=== PATIENT | female | born 1930 | race Caucasian/White ===

== ENCOUNTER 2016-11-02 08:13 | Inpatient (IN) | payer MEDICARE, OTHER ==
[2016-11-02] VITALS (7 sets, daily range): BP systolic 114–153; BP diastolic 46–73; PULSE 63–79; RESP 16–20; O2SAT 88–95
[~2016-11-02] VITALS: Ht 162.6 cm; Wt 65.5 kg
--- NOTE | 2016-11-02 08:35 | ED.REPORT ---
HPI-Abd Pain F 40 and Over Date of Service Nov 02, 2016 ED Provider: Philip Ryder MD The pt is an 85 y/o female w/ a hx of anemia, HTN, and colon cancer presenting to the ED due to severe lower abdominal pain. The pain began after dinner w/ severe gas at 2000 last night with abdominal cramping following an hour after that. Around 0000 the pt started noticing rectal bleeding w/o bowel movements as well. The pt has had several episodes of bloody diarrhea since then as well as L sided abdominal pain, nausea, and polydipsia. The pts family had the same dinner last night and are not experiencing any of her symptoms. The pt also has chronic peripheral edema. Denies vomiting and is unsure of a fever. The pts last colonoscopy was two years ago and was excellent. Nursing Notes Stated Complaint: ABDOMINAL PAIN Chief Complaint: Female Abdominal Pain Nursing Notes Reviewed: Yes Allergies: Coded Allergies: diltiazem (Verified Allergy, Intermediate, 11/02/16) latex (Verified Allergy, Unknown, rash, 11/02/16) neomycin (Verified Allergy, Unknown, rash, 11/02/16) Uncoded Allergies: CHEMO (Allergy, Unknown, 11/02/16) Scheduled Amlodipine (Amlodipine) 10 Mg Tablet 10 MG PO DAILY Aspirin (Aspirin) 81 Mg Tablet 81 MG PO DAILY Atorvastatin Calcium (Atorvastatin Calcium) 40 Mg Tablet 40 MG PO DAILY Carvedilol (Carvedilol) 6.25 Mg Tablet 6.25 MG PO BID Cholecalciferol (Vitamin D3) (Vitamin D) 1,000 Unit Tablet 2,000 UNIT PO DAILY Scheduled PRN Sennosides (Senna Laxative) 25 Mg Tablet 25 MG PO DAILY PRN PRN For Constipation Miscellaneous Medications Fexofenadine HCl (Aller-Ease) 30 Mg/5 Ml Oral.susp 30 MG PO Multivits-Min/FA/Lycopene/Lut (Centrum Silver Tablet) 1 Each Tablet 1 EACH PO [place]-3 Fatty Acids (Fish Oil) 500 Mg Capsule. 500 MG PO General Time Seen by MD: 08:35 Chief Complaint Abdominal pain Hx Obtained From: Patient Arrived By: Walk-in Sudden in Onset?: Yes Onset Occurred: 9 - 12 hours ago Symptom Duration: Since onset Recent Healthcare: No recent doctor visit, No recent hospitalization Past Medical History Past Medical History Colon cancer Anemia Last colonoscopy was 2015 and was "excellent" Reports: Hypertension Past Surgical History Hip replacements x2 Surgery for her colon cancer Smoking History Current Every Day Smoker Social History Other Social History: Good social support Ambulatory Status Independent Review of Systems Chronic peripheral edema; Rectal bleeding w/o bowel movements; Pt is unsure if she has had a fever; GI: Reports: Abdominal pain (L sided as well as lower ), Bloody/tarry stool, Diarrhea, Nausea, Denies: Vomiting Complete sys rev & neg: except as marked. Endocrine: Reports: Polydipsia Physical Exam Vital Signs Vital Signs (First) Date Time Temp Pulse Resp B/P Pulse Ox O2 Delivery O2 Flow Rate FiO2 11/02/16 08:18 36.4 79 16 114/67 95 Room Air Initial VS: Reviewed Head / Eyes: Atraumatic, Normocephalic, PERRL ENT: Mucous membranes moist, Conjunctiva normal, No scleral icterus Neck: Supple, Non-tender, Full range of motion Neurologic: Alert, Oriented, Nonfocal Psychiatric: Mood/affect normal, Behavior normal, Normal thought content General/Constitutional: Awake, Alert Respiratory / Chest: Atraumatic, Breath sounds NL, Breath sounds = bilat Cardiovascular: Heart rate NL, Regular rhythm, Heart sounds NL Lower Ext Edema: Positive: Bilateral 1+ Abdomen: Soft Very significant LLQ tenderness w/ guarding and rebound w/ some referred tenderness Back: Atraumatic, Full range of motion Rectal for Blood: Positive: Blood, grossly present Interpretation & Diagnostics Lab Results Interpretation Result Diagram: 11/02/16 0900 11/02/16 0900 Test 11/02/16 09:00 White Blood Count 21.3th/mm3 (3.8-10.1) Red Blood Count 4.61mil/mm3 (3.90-5.20) Hemoglobin 14.0g/dL (12.0-15.6) Hematocrit 41.9% (35.0-46.0) Mean Corpuscular Volume 90.9fL (81-100) Mean Corpuscular Hemoglobin 30.4pg (27.0-35.0) Mean Corpuscular Hemoglobin Concent 33.4% (32.0-37.0) Red Cell Distribution Width 15.4% (12.3-15.4) Platelet Count 276bil/L (150-400) Neutrophils (%) (Auto) 88.9% (40-74) Lymphocytes (%) (Auto) 5.0% (14-46) Monocytes (%) (Auto) 5.8% (4-12) Eosinophils (%) (Auto) 0% (0-5) Basophils (%) (Auto) 0.1% (0-3) Sodium Level 138mEq/L (134-144) Potassium Level 3.7mEq/L (3.5-5.2) Chloride Level 101mEq/L (97-108) Carbon Dioxide Level 20mmol/L (18-29) Blood Urea Nitrogen 17mg/dL (8-27) Creatinine 0.70mg/dL (0.57-1.00) Estimat Glomerular Filtration Rate 114mL/min (>59) Glucose Level 159mg/dL (60-99) Lactic Acid Level 2.7mmol/L (0.4-2.0) Calcium Level 9.6mg/dL (8.5-10.1) Magnesium Level 2.0mg/dL (1.6-2.6) Total Bilirubin 0.6mg/dL (0.0-1.2) Aspartate Amino Transf (AST/SGOT) 20U/L (0-50) Alanine Aminotransferase (ALT/SGPT) 19U/L (0-32) Alkaline Phosphatase 110U/L (25-165) Total Protein 7.0g/dL (6.4-8.4) Albumin 3.6g/dL (3.4-5.0) Lipase 21U/L (13-60) Hold [place] Top Tube Received (Received) ECG Interpretation ECG Interpretation: Rate 70 NSR Atrial premature complex Time: 09:48 Interpreted by: ED physician CT Abd / Pelvis Interpretation IMPRESSION: 1. Circumferential wall thickening of the splenic flexure and descending colon would be consistent with colitis of uncertain etiology. Differential diagnoses would include infectious or pseudomembranous colitis, underlying inflammatory bowel disease, or ischemic colitis. 2. 9.6 x 7.3 x 7.0 cm heterogeneously enhancing mass adjacent to the lesser curvature of the stomach. Differential diagnoses would include GI stromal tumor versus unusual manifestation of colon carcinoma metastasis. 3. Bilateral renal cortical and parapelvic cysts, larger and more numerous on the right. 4. 3.7 x 3.5 cm infrarenal abdominal aortic aneurysm. Dictated by: Kendrick Sauceda M.D. on 11/02/2016 at 10:17 Approved by: Kendrick Sauceda M.D. on 11/02/2016 at 10:33 Study type: Abdom CT oral contrast Interpretation / Wet Read by: Interpret - Radiologist Re-Eval/Medical Decision Source of Hx: Old records Re-Evaluation/Progress #1: Time of Eval: 10:45 Re-Evaluation/Progress Note: Rechecked pt and discussed CT results. Informed pt of need for admission. Pt understands and agrees with plan for admission. All questions addressed. Re-Evaluation/Progress #2: Time of Eval: 12:28 Re-Evaluation/Progress Note: Rechecked pt and clarified the results of the CT scan. The pts daughter reports that the pt was given antibiotics after having a few teeth pulled a few weeks ago. Consultation : Referral / Consult Name: Gilmar Mauro MD Consulted With: Hospitalist Call Returned at: 11:33 Orientor: Will see patient, Agrees with eval, Agrees with plan, Accepts admit Counseled Regarding: Diagnosis, Lab results, Need for admission Discharge & Departure Primary Impression: Colitis Additional Impressions: Abdominal pain Abdominal location: unspecified location Qualified Code: R10.9 - Unspecified abdominal pain Abdominal mass Disposition: ADMITTED TO HOSPITAL Discharge Condition All VS Reviewed: Yes Condition: Stable Referrals: Yelena Patterson MD Scribe Attestation Portions of this note were transcribed by Angel Archer. I, Dr. Ryder personally performed the history, physical exam and medical decision-making; I reviewed and confirmed the accuracy of the information in the transcribed note. copies to: Yelena Patterson MD, Kirk H MD Nov 02, 2016 08:35 Angel Archer Nov 02, 2016 08:38
[2016-11-02] MEDS ORDERED: 0.9% Sodium Chloride 1,000 ML IV ONE (08:58)
[2016-11-02] MEDS ORDERED: Acetaminophen IV 1,000 MG in IV Premix 1 EACH IV ONE (09:00)
[2016-11-02] MEDS ORDERED: Pantoprazole 4 mg/mL 10 mL Inj IVPUSH ONE (09:00)
[2016-11-02] MEDS ORDERED: HYDROmorphone 0.5 mg/0.5 mL iSecure Syringe IVPUSH PRN (09:00)
[2016-11-02] MEDS ORDERED: Ondansetron 2 mg/mL 2 mL Inj IVPUSH PRN ×2 (09:00→11:55)
[2016-11-02 09:30] LABS: EOSINOPHILS % (AUTO) 0 % (0-5); Mean Corpuscular Volume 90.9 fL (81-100)
[2016-11-02 09:32] LABS: BASOPHILS % (AUTO) 0.1 % (0-3); MONOCYTES % (AUTO) 5.8 % (4-12); Mean Corpuscular Hemoglobin 30.4 pg (27.0-35.0); NEUTROPHILS % (AUTO) 88.9 % (40-74); Platelet Count 276 bil/L (150-400)
--- NOTE | 2016-11-02 10:35 | DRSVH ---
PROCEDURE: CT ABDOMEN AND PELVIS WITH CONTRAST ([id number]) INDICATIONS: 85 year-old female with history of colon carcinoma, with left lower quadrant abdominal p ain and hematochezia. TECHNIQUE: After the administration of intravenous contrast, 5 mm thick sections acquired from the diaphragm to the symphysis. 5 mm coronal and sagittal reformats were acquired. For radiation dose reduction, the following was used: automated exposure control, adjustment of mA and/or kV according to patient siz e. COMPARISON: None available. FINDINGS: Image quality: Metallic streak artifact from bilateral hip arthroplasty hardware obscures adjacent moses ne and soft tissue structures in the pelvis. ABDOMEN: Lung bases: Lung bases are clear, except for linear bibasilar scarring. Heart size is upper normal. Solid organs: Liver and spleen are normal in size. 4 mm hypodense focus is situated near the gallbl adder fossa, too small to further characterize but likely a tiny cyst. Gallbladder wall thickness is normal. Biliary system is non dilated. Pancreas enhances normally. No adrenal nodules. Kidneys de monstrate normal size, without hydronephrosis. Bilateral renal cortical and parapelvic cysts are pres ent, larger and more numerous on the right. Peritoneum and bowel: Bowel loops demonstrate normal overall caliber. There is circumferential colo n wall thickening involving the splenic flexure and descending colon, with adjacent inflammatory fat stranding. No pneumatosis. On axial image 31, 9.6 x 7.3 x 7.0 cm heterogeneously enhancing mass lesio n is situated adjacent to the lesser curvature of the stomach, with extrinsic displacement of the gas tric wall. No free fluid or air. Nodes and vessels: No retroperitoneal or mesenteric adenopathy by size criteria. Infrarenal 3.7 x 3 .5 cm abdominal aortic aneurysm is present. There is widespread aortoiliac atherosclerosis. Inferior vena cava demonstrates conventional morphology. Sagittal images demonstrate greater than 50% eccentri c luminal stenosis at the superior mesenteric artery origin from atherosclerotic plaque. The celiac t runk and inferior mesenteric artery both appear patent. Miscellaneous: No ventral hernias. PELVIS: Genitourinary: Incompletely distended bladder is largely obscured by metallic streak artifact. The ut erus appears surgically absent. Postmenopausal ovaries are not seen. Miscellaneous: No inguinal hernias or adenopathy. Bones: No suspicious bony lesions. No vertebral body compression fractures. There is lumbar spine l evoscoliosis, as well as multilevel disc degeneration. Patient is status post bilateral hip arthropla sties. IMPRESSION: 1. Circumferential wall thickening of the splenic flexure and descending colon would be consistent wi th colitis of uncertain etiology. Differential diagnoses would include infectious or pseudomembranous colitis, underlying inflammatory bowel disease, or ischemic colitis. 2. 9.6 x 7.3 x 7.0 cm heterogeneously enhancing mass adjacent to the lesser curvature of the stomach. Differential diagnoses would include GI stromal tumor versus unusual manifestation of colon carcinom a metastasis. 3. Bilateral renal cortical and parapelvic cysts, larger and more numerous on the right. 4. 3.7 x 3.5 cm infrarenal abdominal aortic aneurysm. Dictated by: Kendrick Sauceda M.D. on 11/02/2016 at 10:17 Approved by: Kendrick Sauceda M.D. on 11/02/2016 at 10:33
[2016-11-02] MEDS ORDERED: CARV6.252 PO (11:17)
[2016-11-02] MEDS ORDERED: ATOR40TA69 PO (11:17)
[2016-11-02] MEDS ORDERED: AMLO10TA3 PO (11:17)
[2016-11-02] MEDS ORDERED: MULT-1073 PO (11:21)
[2016-11-02] MEDS ORDERED: OMEG500C PO (11:21)
[2016-11-02] MEDS ORDERED: CHOL100043 PO (11:21)
[2016-11-02] MEDS ORDERED: ASPI-973 PO (11:21)
[2016-11-02] MEDS ORDERED: FEXO30OR PO (11:21)
[2016-11-02] MEDS ORDERED: SENN25TA8 PO (11:21)
[2016-11-02] MEDS ORDERED: Polyethylene Glycol (PEG) 17 Gm Powder PO PRN (11:55)
[2016-11-02] MEDS ORDERED: Alum-Mag Hydrox-Simeth 30 mL Suspension PO PRN (11:55)
--- NOTE | 2016-11-02 13:15 | NUR ---
Admit to [facility] Report received from Stephanie Pina/CHAPARRO in ED. Pt brought up to floor via gurney at 1315. Pt weak and shaky on feet - proceeding with 1[employer] for OOB activity, uses cane at home. Admission and MED REC completed by admit nurse. Pt oriented to unit, room and call light. Tele placed - SR 65. Pt denies pain and SOB at rest. Instructed about plan of care, board updated. MD in room to evaluate. Plan for Colonoscopy tomorrow and to begin prep at 1600.
--- NOTE | 2016-11-02 13:23 | CONS ---
[address] [address] CONSULTATION REPORT PATIENT: WEN LE : 1930 MR#: [id number] ADMIT: 11/02/2016 JOB ID: [id number] DATE OF SERVICE: 11/02/2016 REASON FOR CONSULTATION: Rectal bleeding. HISTORY OF PRESENT ILLNESS: An 85-year-old, female with history of colon cancer in 1999, status post colon resection, chemo and XRT in 2001, which she finished five doses of chemo, history of hypertension and anemia, who presents for consultation for abdominal pain and rectal bleeding. The patient states that she has had bright red blood per rectum, covers the entire toilet x1 day, several episodes, 5-8 times during that point in time. The patient states that is what brought her to the emergency department. The patient had a colonoscopy in 2014 which was normal. I have no records. The patient also had an upper endoscopy one year ago which was normal. I have no records. The patient denies family history of colon cancer, celiac disease, but does have a daughter with ulcerative colitis. The patient denies melena, nausea, vomiting, hematemesis, unintentional weight loss. Patient did state she has mild constipation prior to her rectal bleeding but has been taking a laxative. PAST MEDICAL HISTORY: As stated above. PAST SURGERIES: Colon resection for colon cancer in 1999, hip replacement x2. ALLERGIES: 1. DILTIAZEM. 2. LATEX. 3. NEOMYCIN. MEDICATIONS: Amlodipine, aspirin, atorvastatin, carvedilol, vitamin D. SOCIAL HISTORY: Denies smoking, alcohol, or drugs. FAMILY HISTORY: Negative for IBD or celiac disease but has ulcerative colitis. REVIEW OF SYSTEMS: Patient denies headache, blurred vision, nausea, vomiting, chest pain, shortness of breath. Positive abdominal pain. No skin rash, joint pain. PHYSICAL EXAMINATION: Vital signs upon presentation: Temperature is 38.0, pulse 67, blood pressure 119/46, respiratory rate 16, satting 88% in room air. General: No acute distress. Head: No scars. Anicteric. Throat supple. Lungs: Clear to auscultation bilaterally. Cardiovascular: Regular rhythm and rate. Abdomen soft, mildly distended. Positive significant left lower quadrant pain upon palpation. No rebound tenderness. Normoactive bowel sounds. Extremities show no cyanosis, clubbing, or edema. LABORATORIES: White count 21.3. Hemoglobin 14, hematocrit 41, platelet count of 276. Sodium 138, potassium 3.7, chloride 101, bicarb 20, BUN 17, creatinine 0.7. Glucose 159. Lactic acid 2.7, calcium 9.6. Magnesium 2.0. Total bili 0.6, AST 20, ALT 19, alk phos 110. Total protein 7.0, albumin 3.6, lipase 21. CT abdomen and pelvis with contrast performed on November 02, 2016, shows circumferential wall thickening of the splenic flexure, descending colon, consistent with possible colitis, 9.6 x 7.3 x 7.0 cm heterogeneous enhancing mass adjacent to the lesser curvature of the stomach. Differential diagnosis includes GI stromal tumor versus colon cancer metastasis. Bilateral renal cortical parapelvic cysts and 3.7 x 3.5 cm infrarenal abdominal aortic aneurysm. It also shows that there is a greater than 50% luminal stenosis at the SMA from atherosclerotic plaques. ASSESSMENT AND PLAN: This is an 85-year-old, female with history of colon cancer cx 1999, status post colon resection, chemo x 5 rounds and XRT, hypertension. The patient finished chemotherapy in 2001. Presents here with left lower quadrant pain, now elevated white count with bloody diarrhea. At this point in time, I am concerned that the patient most likely may have ischemic colitis. The patient has an elevated lactic acid level of 2.7, along with significant abdominal left lower quadrant pain and also a white count of 21.3. At this point, in time, I do recommend that the patient be put on broad-spectrum antibiotics for most likely ischemic colitis, and have an EGD and colonoscopy to evaluate for her rectal bleeding. General Surgery consultation should also be consulted for likely ischemic colitis. I am also concerned about the greater than 50% luminal stenosis at SMA. I recommend mesenteric angiogram to evaluate the extent of the atherosclerotic disease in the abdominal mesentery and depending of findings, pt may need revascularization. RECOMMENDATIONS: 1. N.p.o. except for medications. 2. GoLYTELY prep tonight with EGD and colonoscopy scheduled for tomorrow. 3. Broad-spectrum IV antibiotics. 4. General Surgery consultation. 5. Mesenteric angiogram. 6. Serial abdominal exams. MTDD
--- NOTE | 2016-11-02 13:49 | PCM.HPMED ---
Subjective Date of Service Nov 02, 2016 Primary Provider: Admitting Physician: Gilmar Mauro MD Primary Care Physician: Other,Physician Attending Physician: Gilmar Mauro MD Chief Complaint: Abdominal pain History of Present Illness: From ER, patient and family: 85 y/o female w/ a hx of HTN, and colon cancer (s/p resection, chemo and radiation in 2001) who is coming in with severe lower abdominal pain. The pain began after dinner w/ severe gas last night with abdominal cramping following an hour after that.Lat night, she started noticing rectal bleeding w/o bowel movements as well. The pt has had several episodes of bloody diarrhea since then as well as L sided abdominal pain, nausea, and polydipsia.Patient said she did not have any issues like this before. She is a current smoker. Allergies Coded Allergies: diltiazem (Verified Allergy, Intermediate, 11/02/16) latex (Verified Allergy, Unknown, rash, 11/02/16) neomycin (Verified Allergy, Unknown, rash, 11/02/16) Uncoded Allergies: CHEMO (Allergy, Unknown, 11/02/16) Constitutional: : Fever: Weakness Eyes: No: Conjunctivae inflammation, Eyelid inflammation, Other, Pain, Redness , Vision change ENT: : Other (hard of hearing) Respiratory: No: Cough, Dry, Hemoptysis, Other, Pleuritic Pain, SOB with excertion, Shortness of breath, Sputum, Wheezing, Wheezing Cardiovascular: No: Chest Pain, Edema, Lt Headedness, Orthopnea, Other, Palpitations, Paroxysmal Noc. Dyspnea Gastrointestinal: : Other (as per HPI) Genitourinary: Negative for: Dysuria, Frequency, Hematuria, Incontinence, Other , Retention Musculoskeletal: No: arm pain, back pain, foot pain, hand pain, leg pain, neck pain, other, shoulder pain Skin: No: Bruising, Jaundice, Lesions, Other, Rash Neurological: No: Change in speech, Confusion, Incoordination, Numbness, Other , Seizures, Weakness Home Meds Reported Medications [place]-3 Fatty Acids (Fish Oil)500 Mg Capsule.dr500 Mg PO 11/02/16 Fexofenadine HCl (Aller-Ease)30 Mg/5 Ml Oral.susp30 Mg PO 11/02/16 Multivits-Min/FA/Lycopene/Lut (Centrum Silver Tablet)1 Each Tablet1 Each PO 11/02/16 Cholecalciferol (Vitamin D3) (Vitamin D)1,000 Unit Tablet2,000 Unit PO DAILY #1 BOTTLE Ref 0 11/02/16 Sennosides (Senna Laxative)25 Mg [id number] Mg PO DAILY PRN For Constipation 11/02/16 Aspirin 81 Mg [id number] Mg PO DAILY Ref 0 11/02/16 Atorvastatin Calcium 40 Mg Jnanss23 Mg PO DAILY Ref 0 11/02/16 Carvedilol 6.25 Mg Tablet6.25 Mg PO BID Ref 0 11/02/16 Amlodipine 10 Mg [id number] Mg PO DAILY Ref 0 11/02/16 PMH Colon cancer Anemia Last colonoscopy was 2014 and was "excellent" Reports: Hypertension Surgical History Hip replacements x2 Surgery for her colon cancer Social History Hx Alcohol Use: Yes (1 drink per day) Hx Substance Use: No Smoking Status: Current Every Day Smoker Exam Vital Signs Vital Sign - Last Date Time Temp Pulse Resp B/P Pulse Ox O2 Delivery O2 Flow Rate FiO2 11/02/16 10:34 67 16 119/46 88 Room Air 11/02/16 10:01 38.0 Exam Head / Eyes: Atraumatic, Normocephalic, PERRL ENT: Mucous membranes moist, Conjunctiva normal, No scleral icterus Neck: Supple, Non-tender, Full range of motion Neurologic: Alert, Oriented, Nonfocal Psychiatric: Mood/affect normal, Behavior normal, Normal thought content General/Constitutional: Awake, Alert Respiratory / Chest: Atraumatic, Breath sounds NL, Breath sounds = bilat Cardiovascular: Heart rate NL, Regular rhythm, II/V systolic murmur Lower Ext Edema: Positive: Bilateral 1+ Abdomen: Soft, Very significant LLQ tenderness w/ guarding and rebound w/ some referred tenderness Back: Atraumatic, Full range of motion Rectal for Blood: Positive: Blood, grossly present Lab and Diagnostics Result Diagram: 11/02/16 0900 11/02/16 0900 X-Rays, CTs and MRIs CT abd IMPRESSION: 1. Circumferential wall thickening of the splenic flexure and descending colon would be consistent with colitis of uncertain etiology. Differential diagnoses would include infectious or pseudomembranous colitis, underlying inflammatory bowel disease, or ischemic colitis. 2. 9.6 x 7.3 x 7.0 cm heterogeneously enhancing mass adjacent to the lesser curvature of the stomach. Differential diagnoses would include GI stromal tumor versus unusual manifestation of colon carcinoma metastasis. 3. Bilateral renal cortical and parapelvic cysts, larger and more numerous on the right. 4. 3.7 x 3.5 cm infrarenal abdominal aortic aneurysm. Assessment & Plan 85 y/o female w/ a hx of HTN, and colon cancer (s/p resection, chemo and radiation in 2001) who is coming in with severe lower abdominal pain. >Abdominal pain - CT scan as noted above : concerns for ischemic colitis vs infectious colitis - leukocytosis and elevated lactic acid - continue emperic abx : levo + flagyl - Colonoscopy and endoscopy tomorrow - MR angio of abdomen - GI on board - Surgery consult > Abdominal mass - 9.6 x 7.3 x 7.0 cm heterogeneously enhancing mass adjacent to the lesser curvature of the stomach - Endoscopy tomorrow > Hypercholetrimia - continue home meds > HTN - continue carvedilol, will hold amlodipine as patient is normotensive to hypotensive here > Abdominal Artery aneurysm - <5.5 cms in size, will need outpatient follow up Patient likely to stay > 2 midnights due to complexity of the disease Pain Evaluation: Adequate Pain Control VTE Prophylaxis: SCDs Resuscitation Status: DNR/DNI:Do Not Resuscitate/Intubate Time spent 35 mins Gilmar Mauro MD Nov 02, 2016 12:30
[2016-11-02] MEDS: 0.9% Sodium Chloride 1,000 ML IV SCH (14:04)
--- NOTE | 2016-11-02 14:38 | PCM.CONSUR ---
Subjective Date of Service: Nov 02, 2016 History of Present Illness Scarlett is an 85 year old woman with history of colon cancer who underwent colon resection and chemoradiation treatment in 2002 who presents with a 1 day history of frequent bloody bowel movements associated with severe, cramping abdominal pain and nausea. She has been admitted to the medical team and has been evaluated by gastroenterology. She underwent CT Abd/P that demonstrated splenic flexure and descending colon wall thickening as well as a 9.6x7.3x7cm heterogenous enhancing mass adjacent the lesser curve of the stomach. A mesenteric angiogram has also been ordered to assess for possible ischemic causes of her presentation. She does have a leukocytosis to 21.3, normal Hct at 42 and platelets 276. She had a fever to 38 and lactic acid of 2.7 on admission. GI will be doing a prep today, NPO, and plans for upper and lower endoscopies tomorrow to assess the colon as well as the mass adjacent the stomach. Surgery has been consulted given her acute rectal bleeding with colitis as well as this mass of unknown etiology in the setting of history of colon cancer. Reason for Consultation Rectal bleeding Allergy Allergies: Coded Allergies: diltiazem (Verified Allergy, Intermediate, 11/02/16) latex (Verified Allergy, Unknown, rash, 11/02/16) neomycin (Verified Allergy, Unknown, rash, 11/02/16) Uncoded Allergies: CHEMO (Allergy, Unknown, 11/02/16) Medications Blood Thinners: Aspirin ([areds 2 eye vit]) 1 TABLET PO BID (Reported) Last Taken: 1 tab on 11/01/16 1700 Amlodipine (Amlodipine) 10 Mg Tablet 10 MG PO DAILY (Reported) Last Taken: Unknown Dose on 11/01/16 0800 Aspirin (Aspirin) 81 Mg Tablet 81 MG PO DAILY (Reported) Last Taken: Unknown Dose on 11/01/16 1700 Atorvastatin Calcium (Atorvastatin Calcium) 40 Mg Tablet 40 MG PO DAILY (Reported) Last Taken: Unknown Dose on 11/01/16 1900 Carvedilol (Carvedilol) 6.25 Mg Tablet 6.25 MG PO BID (Reported) Last Taken: Unknown Dose on 11/01/16 1700 Cholecalciferol (Vitamin D3) ( Vitamin D) 1,000 Unit Tablet 2,000 UNIT PO DAILY (Reported) Last Taken: Unknown Dose on 11/01/16 0800 Fexofenadine HCl (Aller-Ease) 30 Mg/ 5 Ml Oral.susp 30 MG PO (Reported) Last Taken: Unknown Dose on 11/01/16 0800 Multivits-Min/FA/Lycopene/Lut ( Centrum Silver Tablet) 1 Each Tablet 1 EACH PO (Reported) Last Taken: Unknown Dose on 11/01/16 0800 Oxbow-3 Fatty Acids (Fish Oil) 500 Mg Capsule.dr 500 MG PO (Reported) Last Taken: Unknown Dose on 11/01/16 1700 Sennosides (Senna Laxative) 25 Mg Tablet 25 MG PO DAILY PRN PRN For Constipation (Reported) Last Taken: Unknown Dose on 10/31/16 1900 Past Surgical History Surgeries: Yes (HYSTERECTOMY, CARDIAC STENT, COLON, JOCELYN HIPS) Patient/Family Past Surgical: Positive for:: Accept Blood Products?, Denies:: Anesthesia Reactions, Blood Transfusions Social History Hx Alcohol Use: Yes (1 drink per day) Hx Substance Use: No Hx Tobacco Use: Yes (Current every day smoker.) PMH HEENT History History of ENT Problems?: Yes HEENT History: Positive for:: Cataracts (surgery 2014) Glaucoma Denies:: Dysphagia Sinus Problem Cardiovascular History History of Heart Problems?: Yes Cardiovascular History: Positive for:: Cardiac Surgery (stent) Edema Heart Murmur Hypertension Denies:: Chest Pain Congestive Heart Failure (?WEARS COMPRESSION HOSE FOR BLE SWELLING.) Irregular Heartbeat Pacemaker Thrombophlebitis Respiratory History of Respiratory Problem: Yes Respiratory History: Positive for:: Dyspnea Denies:: Asthma COPD Chest Surgery Emphysema Hemoptysis Pneumonia Tuberculosis Neurological History Hx Neurologic Problems?: No Neurological History: Denies:: Alzheimer's Disease CVA Dementia Dizziness Headaches Parkinson's Disease Seizures Gastrointestinal History HX of GI Problems?: Yes Gastrointestinal History: Positive for:: Gastroesphageal Reflux Heartburn Rectal Bleeding (this admission 11/02/16) Denies:: Diverticulitis Gastrointestinal Bleeding Hepatitis Hiatal Hernia Genitourinary History Hx of Gu Problems?: Yes Genitourinary History: Positive for: Urinary Tract Infection Denies: HX of Hemodialysis Kidney Stones Female/Male History Reproductive History Female: Positive for: Endometriosis Denies: Currently ? Pelvic Inflammatory DX Problems with Breasts? Musculoskeletal History Musculoskeletal History: Positive for:: Back Injury (scoliosis) Joint Replacement (both hips) Denies:: Musculoskeletal Trauma Psycho Social History Hx of Psycho/Social Problems?: No Psycho Social History: Denies:: Anxiety Bipolar Disorder Hx Depression Suicide Attempt Other History Other History: Positive for:: Cancer (colon) Hospitalization (colon cancer, hip replacements, childbirth x4) Denies:: Thyroid Disease Diabetes: No Social History Hx Alcohol Use: Yes (1 drink per day)Hx Substance Use: No Smoking Status: Current Every Day Smoker Objective Exam Vital Signs & I/O Vital Sign- Last 8 Hours Date Time Temp Pulse Resp B/P Pulse Ox O2 Delivery O2 Flow Rate FiO2 11/02/16 14:04 68 11/02/16 14:02 36.8 63 19 124/71 92 Room Air 11/02/16 13:15 74 16 121/51 95 Nasal Cannula 2 11/02/16 10:34 67 16 119/46 88 Room Air 11/02/16 10:01 38.0 11/02/16 08:18 36.4 79 16 114/67 95 Room Air Lab & Micro Results Laboratory Tests Test 11/02/16 09:00 White Blood Count 21.3th/mm3 (3.8-10.1) Red Blood Count 4.61mil/mm3 (3.90-5.20) Hemoglobin 14.0g/dL (12.0-15.6) Hematocrit 41.9% (35.0-46.0) Mean Corpuscular Volume 90.9fL (81-100) Mean Corpuscular Hemoglobin 30.4pg (27.0-35.0) Mean Corpuscular Hemoglobin Concent 33.4% (32.0-37.0) Red Cell Distribution Width 15.4% (12.3-15.4) Platelet Count 276bil/L (150-400) Neutrophils (%) (Auto) 88.9% (40-74) Lymphocytes (%) (Auto) 5.0% (14-46) Monocytes (%) (Auto) 5.8% (4-12) Eosinophils (%) (Auto) 0% (0-5) Basophils (%) (Auto) 0.1% (0-3) Sodium Level 138mEq/L (134-144) Potassium Level 3.7mEq/L (3.5-5.2) Chloride Level 101mEq/L (97-108) Carbon Dioxide Level 20mmol/L (18-29) Blood Urea Nitrogen 17mg/dL (8-27) Creatinine 0.70mg/dL (0.57-1.00) Estimat Glomerular Filtration Rate 114mL/min (>59) Glucose Level 159mg/dL (60-99) Lactic Acid Level 2.7mmol/L (0.4-2.0) Calcium Level 9.6mg/dL (8.5-10.1) Magnesium Level 2.0mg/dL (1.6-2.6) Total Bilirubin 0.6mg/dL (0.0-1.2) Aspartate Amino Transf (AST/SGOT) 20U/L (0-50) Alanine Aminotransferase (ALT/SGPT) 19U/L (0-32) Alkaline Phosphatase 110U/L (25-165) Total Protein 7.0g/dL (6.4-8.4) Albumin 3.6g/dL (3.4-5.0) Lipase 21U/L (13-60) Hold [place] Top Tube Received (Received) Result Diagram: 11/02/1689911/02/16 09 Review of Systems: Constitutional: Negative, except as otherwise mentioned in the history above. Ophthalmologic: Negative, except as otherwise mentioned in the history above. Cardiovascular: Negative, except as otherwise mentioned in the history above. Respiratory: Negative, except as otherwise mentioned in the history above. Gastrointestinal: Negative, except as otherwise mentioned in the history above. Genitourinary: Negative, except as otherwise mentioned in the history above. Musculoskeletal: Negative, except as otherwise mentioned in the history above. Neurological: Negative, except as otherwise mentioned in the history above. Psychiatric: Negative, except as otherwise mentioned in the history above. Hematologic/Lymphatic: Negative, except as otherwise mentioned in the history above. Allergic/Immunologic: Negative, except as otherwise mentioned in the history above. Additional Information Diagnostic Imaging IMPRESSION: 1. Circumferential wall thickening of the splenic flexure and descending colon would be consistent with colitis of uncertain etiology. Differential diagnoses would include infectious or pseudomembranous colitis, underlying inflammatory bowel disease, or ischemic colitis. 2. 9.6 x 7.3 x 7.0 cm heterogeneously enhancing mass adjacent to the lesser curvature of the stomach. Differential diagnoses would include GI stromal tumor versus unusual manifestation of colon carcinoma metastasis. 3. Bilateral renal cortical and parapelvic cysts, larger and more numerous on the right. 4. 3.7 x 3.5 cm infrarenal abdominal aortic aneurysm. H&P Surgical Exam Exam General: Alert, Oriented X3, Cooperative, No Acute Distress HEENT: PERRLA, EOMI, Mucous membranes moist and pink Neck: Within normal limits & unremarkable Respiratory: Clear to Auscultation Cardiac: Regular Rate/Rhythm, No Murmurs/Rubs/Gallops Abdomen: Other (Soft, tender to palpation in the LLQ and LUQ and suprapubic region. No epigastric tenderness. No peritoneal signs. No masses appreciated.) Assessment & Plan Assessment 85 year old female with rectal bleeding and possible ischemic v. infectious colitis with a mass adjacent the stomach of unknown etiology and no associated symptoms. Her differential diagnosis includes recurrent colon cancer, GIST, ischemic/infectious colitis, Cdiff colitis and CLL. Most likely given stable hematocrit and episodes of blood bowel movements is infectious colitis. The mass adjacent the lesser curvature of the stomach is ominous and could be a new primary cancer versus a recurrent colon cancer. In addition, her leukocytosis with bandemia is more consistent with an infectious etiology likely related to her colonic process but CLL would be included in this differential at her age. We agree with the GI and medical teams recommendations and appreciate their management. VTE Prophylaxis: SCDs Plan: Recommendations: - Agree with MR angiogram to assess for ischemic colitis - NPO, glytely prep, upper and lower endoscopies tomorrow with GI - Continue Cipro and Flagyl for empiric antibiotic coverage for possible infectious colitis - CEA to assess for possible colon cancer recurrence - Send stool sample for Cdiff - Trend CBC tomorrow AM - If any significant changes in abdominal exam or acute bleeding please contact the General Surgery service, otherwise we will await results of MR angiogram and scopes before making additional surgical recommendations. Resuscitation Status: DNR/DNI:Do Not Resuscitate/Intubate Jakob Lockwood MD Nov 02, 2016 14:38
[2016-11-02] MEDS ORDERED: PEG/Electrolytes 4,000 mL Solution PO ONE ×2 (16:00→20:00)
[2016-11-02] MEDS ORDERED: AREDS EYE VIT PO (16:14)
[2016-11-02] MEDS: levoFLOXacin Inj 750 MG in IV Premix 1 EACH IV SCH (16:27)
--- NOTE | 2016-11-02 16:51 | DRSVH ---
PROCEDURE: MRA ANGIOGRAM ABDOMEN ([id number]) INDICATIONS: ischemic colitis TECHNIQUE: Precontrast axial, coronal, and sagittal TruFISP acquired through the abdomen and pelvis. Dynamic co fadi MRA using Care Bolus timing of the abdomen and pelvis during the administration of contrast, wi th 3-dimensional maximum intensity projection (MIP) reformats performed. COMPARISON: 11/02/[address] FINDINGS: Image quality: Excellent. Mesenteric arteries: There is less than 50% narrowing at the origins of otherwise patent celiac axis and superior mesenteric artery. A likely inferior mesenteric artery is identified and is patent. Aorta: Tortuous aorta with mild fusiform dilatation of the distal abdominal aorta measuring 3.8 CM. Renal arteries: Single bilateral renal arteries all appear patent. Extravascular soft tissues: Visualized solid organs are normal in size on limited pre-contrast image s. Multiple renal cysts bilaterally right greater than left. Severe bowel wall thickening in the dis rosmery transverse and descending colon. No free fluid. No ventral hernias. There is a large mass in o r immediately adjacent to the pylorus measuring at least 7.5 x 9.4 CM with fluid-fluid levels. Bones: Marrow is normal in overall signal. IMPRESSION: 1. Celiac access and superior mesenteric artery are patent. A likely inferior mesenteric artery is i dentified and is patent. 2. There is a 3.8 cm distal abdominal aortic fusiform aneurysm. Recommend continued followup with CT or ultrasound. 3. Colonic wall thickening and mass in or adjacent to the stomach wall better seen on today's CT. Dictated by: Semaj Birmingham M.D. on 11/02/2016 at 16:36 Approved by: Semaj Birmingham M.D. on 11/02/2016 at 16:49
[2016-11-02] MEDS ORDERED: Ciprofloxacin Inj 400 MG in IV Premix 1 EACH IV SCH (20:30)
[2016-11-02] MEDS: metroNIDAZOLE Inj 500 MG in IV Premix 1 EACH IV SCH (22:25)
[2016-11-03] VITALS (14 sets, daily range): BP systolic 111–150; BP diastolic 51–72; PULSE 61–77; RESP 14–20; O2SAT 88–98
[2016-11-03] MEDS: 0.9% Sodium Chloride 1,000 ML IV SCH ×3 (05:10→21:37)
--- NOTE | 2016-11-03 05:14 | NUR ---
Bowel Prep Pt completed bowel prep. Flo blood noted in stool/urine mix. Pt denies chest pain or discomfort. Denies SOB at rest or vomiting. Pt complained of cramping "at times." Resting with eyes closed at this time. Call light within reach, using appropriately. Frequent rounding in place. Pleasant and cooperative with care.
[2016-11-03 05:30] LABS: Mean Corpuscular Hemoglobin 30.6 pg (27.0-35.0); Mean Corpuscular Volume 89.6 fL (81-100); Platelet Count 235 bil/L (150-400)
[2016-11-03 05:48] LABS: BASOPHILS % (AUTO) 0 % (0-3); EOSINOPHILS % (AUTO) 0 % (0-5); MONOCYTES % (AUTO) 8 % (4-12); NEUTROPHILS % (AUTO) 81 % (40-74)
[2016-11-03] MEDS ORDERED: Potassium Chloride Inj 30 MEQ in Dextrose 5% 500 ML IV ONE (07:15)
--- NOTE | 2016-11-03 07:57 | PCM.PNMED ---
Subjective Date of Service Nov 03, 2016 Subjective Patient seen and examined. She did not sleep much last night. Pain is controlled. Vitals noted. Exam Vital Signs Vital Sign - Last Date Time Temp Pulse Resp B/P Pulse Ox O2 Delivery O2 Flow Rate FiO2 11/03/16 05:54 77 11/03/16 04:07 36.8 18 150/65 92 Room Air 11/02/16 13:15 2 Intake and Output 11/02/16 11/02/16 11/03/16 Cumulative From/Thru 15:00 23:00 07:00 11/02/16 08:18 - 11/03/16 06:18 Intake Total 4622 ml 4622 ml Output Total 500 ml 500 ml Balance 4122 ml 4122 ml Intake Oral 3254 ml 3254 ml IV Total 1368 ml 1368 ml Output Urine Total 500 ml 500 ml # Voids 10 10 # Bowel Movements 10 10 Exam General/Constitutional: Awake, Alert Respiratory / Chest: Atraumatic, Breath sounds NL, Breath sounds = bilat Cardiovascular: Heart rate NL, Regular rhythm, II/V systolic murmur Lower Ext Edema: Positive: Bilateral 1+ Abdomen: Soft, Very significant LLQ tenderness w/ guarding and rebound w/ some referred tenderness Back: Atraumatic, Full range of motion Lab and Diagnostics Result Diagram: 11/03/1651911/03/16519 X-Rays, CTs and MRIs CT abd IMPRESSION: 1. Circumferential wall thickening of the splenic flexure and descending colon would be consistent with colitis of uncertain etiology. Differential diagnoses would include infectious or pseudomembranous colitis, underlying inflammatory bowel disease, or ischemic colitis. 2. 9.6 x 7.3 x 7.0 cm heterogeneously enhancing mass adjacent to the lesser curvature of the stomach. Differential diagnoses would include GI stromal tumor versus unusual manifestation of colon carcinoma metastasis. 3. Bilateral renal cortical and parapelvic cysts, larger and more numerous on the right. 4. 3.7 x 3.5 cm infrarenal abdominal aortic aneurysm. Additional Diagnostics MRA abd IMPRESSION: 1. Celiac access and superior mesenteric artery are patent. A likely inferior mesenteric artery is identified and is patent. 2. There is a 3.8 cm distal abdominal aortic fusiform aneurysm. Recommend continued followup with CT or ultrasound. 3. Colonic wall thickening and mass in or adjacent to the stomach wall better seen on today's CT. Assessment & Plan 85 y/o female w/ a hx of HTN, and colon cancer (s/p resection, chemo and radiation in 2001) who is coming in with severe lower abdominal pain. >Abdominal pain - CT scan as noted above : concerns for ischemic colitis vs infectious colitis - MRA - patent celiac and mesenteric arteries - leukocytosis , trended down - Hgb stable, tended down, but wnl , likely dilutional - continue emperic abx : levo + flagyl - Colonoscopy and endoscopy today - GI on board - Surgery on board > Abdominal mass - 9.6 x 7.3 x 7.0 cm heterogeneously enhancing mass adjacent to the lesser curvature of the stomach - Endoscopy tomorrow > Hypercholetrimia - continue home meds > HTN - continue carvedilol, will hold amlodipine as patient is normotensive to hypotensive here > Abdominal Artery aneurysm - <5.5 cms in size, will need outpatient follow up Patient likely to stay > 2 midnights due to complexity of the disease Pain Evaluation: Adequate Pain Control VTE Prophylaxis: SCDs VTE Mechanical Devices: Intermittant Pneumatic CD Resuscitation Status: DNR/DNI:Do Not Resuscitate/Intubate Time spent 35 mins Gilmar Mauro MD Nov 03, 2016 07:57
[2016-11-03] MEDS: metroNIDAZOLE Inj 500 MG in IV Premix 1 EACH IV SCH ×2 (08:16→21:37)
--- NOTE | 2016-11-03 11:57 | NUR ---
Social Work: Initial Assessment / Multidisciplinary Rounds Data & Assessment: See initial assessment. Patient is an 85 year old female who was admitted on 11/02/2016 for abdominal pain & colitis per H&P. Patient's insurance is Medicare and her PCP is not on file at this time. SW met with patient to discuss discharge planning. SW role explained. Patient states that she lives with her daughter and grandchildren in [place]. Patient considers her family to be her main source of support. Patient confirms that her daughter is DPOA and that AD have been completed. Patient states that she is I at baseline with the assistance of a cane, walker and rollator. Patient states that she doesn't drive but relies on her family for transportation needs. Patient denies having a hx of home health services or SNF. Patient denies having long-term care insurance or VA benefits. Upon discharge, transportation will be provided by family. SW provided patient with a discharge planning checklist booklet and encouraged to call with any questions or concerns. Phone number provided. Patient was discussed in morning rounds. No concerns were noted by MD or staff. SW will continue to follow. Plan: Patient will discharge home with family. Transportation will be provided by family. SW will continue to follow for needs. HERMAN Berry Addendum: 11/03/16 at 1211 by TARAN BORJA Amended: Links added.
--- NOTE | 2016-11-03 11:58 | PROG NOTE ---
[address] [address] PROGRESS NOTE PATIENT: WEN LE : 1930 MR#: [id number] ADMIT: 11/02/2016 JOB ID: [id number] DATE: 11/03/2016 SUBJECTIVE: This is an 85-year-old female seen in consultation for the hospitalist team regarding colitis, diarrhea with history of bloody stools. Patient reports a relatively sudden onset of symptoms. Today she is feeling better. Is n.p.o. at this time for EGD and colonoscopy. LAB: White blood cell count 16,000 down from 21,000. Hematocrit is 35. Lactic acid returned to normal at 0.7. Her electrolytes and renal function are normal as well. PHYSICAL EXAMINATION: There is a fullness in the upper epigastric portion of her abdomen. Abdomen is soft with no significant tenderness at this time. IMPRESSION: Likely ischemic colitis that will do well with medical management alone. There is incidental finding of an upper abdominal mass that is concerning for gastrointestinal stromal tumor. She does also have a history of colon cancers so the potential for metastatic disease is less likely, but still possible. She will be receiving an esophagogastroduodenoscopy along with her colonoscopy for evaluation of the stomach itself. We also have a CEA level pending at this time to help add with diagnosis. PLAN: Continue to follow along more for the epigastric mass from then the ischemic colitis for which I have less concern. Once she has completed her endoscopic evaluations will be able to set a knowledgeable disposition. Of note, the epigastric mass is asymptomatic and can be worked up as an outpatient as well.
[2016-11-03] MEDS: levoFLOXacin Inj 750 MG in IV Premix 1 EACH IV SCH (14:00)
[2016-11-03] MEDS ORDERED: Ondansetron 2 mg/mL 2 mL Inj IVPUSH PRN (14:40)
[2016-11-03] MEDS ORDERED: MetoCLOpramide 5 mg/mL 2 mL Inj IVPUSH PRN (14:40)
[2016-11-03] MEDS: Lactated Ringer's 1,000 ML IV SCH ×2 (14:40→15:24)
--- NOTE | 2016-11-03 14:44 | PCM.HPANE ---
Patient Data Surgeon Admitting Provider:Gilmar Mauro MD Attending Provider:Gilmar Mauro MD Primary Care Physician:Other,Physician Other Provider:Clarita Cornell MD Reason for Visit Abdominal Pain,Colitis Ht/WT & BMI Height (Feet): 5 Height (Inches): 4.00 Weight (Kilograms): 65.500 Body Mass Index 24.65 Allergies Coded Allergies: diltiazem (Verified Allergy, Intermediate, 11/02/16) latex (Verified Allergy, Unknown, rash, 11/02/16) neomycin (Verified Allergy, Unknown, rash, 11/02/16) Uncoded Allergies: CHEMO (Allergy, Unknown, 11/02/16) Past Anesthesia History Anesthesia History: Denies:: Anesthesia Reactions Diabetes History Hx Diabetes?: No MRSA MRSA: No Medications Reported Medications [areds 2 eye vit] No Conflict Check1 Tablet PO BID 11/02/16 [place]-3 Fatty Acids (Fish Oil)500 Mg Capsule.dr500 Mg PO 11/02/16 Fexofenadine HCl (Aller-Ease)30 Mg/5 Ml Oral.susp30 Mg PO 11/02/16 Multivits-Min/FA/Lycopene/Lut (Centrum Silver Tablet)1 Each Tablet1 Each PO 11/02/16 Cholecalciferol (Vitamin D3) (Vitamin D)1,000 Unit Tablet2,000 Unit PO DAILY #1 BOTTLE Ref 0 11/02/16 Sennosides (Senna Laxative)25 Mg [place]00 Mg PO DAILY PRN For Constipation 11/02/16 Aspirin 81 Mg Syahwd32 Mg PO DAILY Ref 0 11/02/16 Atorvastatin Calcium 40 Mg Paiihi14 Mg PO DAILY Ref 0 11/02/16 Carvedilol 6.25 Mg Tablet6.25 Mg PO BID Ref 0 11/02/16 Amlodipine 10 Mg Apfbsc61 Mg PO DAILY Ref 0 11/02/16 History History of ENT Problems?: Yes HEENT History: Positive for:: Cataracts (surgery 2014) Glaucoma Denies:: Dysphagia Sinus Problem Denture Type: None Teeth Condition: Broken Teeth Tooth Decay Hx of Heart Problems?: Yes Cardiovascular History: Positive for:: Cardiac Surgery (stent) Edema Heart Murmur Hypertension Denies:: Chest Pain Congestive Heart Failure (?WEARS COMPRESSION HOSE FOR BLE SWELLING.) Irregular Heartbeat Pacemaker Thrombophlebitis Other History/Comments No CP Hx of Respiratory Problem?: Yes Respiratory History: Positive for:: Dyspnea Denies:: Asthma COPD Chest Surgery Emphysema Hemoptysis Pneumonia Tuberculosis Hx Neurologic Problems?: No Neurological History: Denies:: Alzheimer's Disease CVA Dementia Dizziness Headaches Parkinson's Disease Seizures Hx of GI Problems?: Yes Hx of Problems?: Yes Genitourinary History: Positive for:: Urinary Tract Infection Denies:: HX of Hemodialysis Kidney Stones HX of Peritoneal Dialysis: No Female Hx: Positive for:: Endometriosis Denies:: Currently Pelvic Inflammatory Problems with Breasts? Hx Musculoskeletal Problems?: Yes Musculoskeletal History: Positive for:: Back Injury (scoliosis) Joint Replacement (both hips) Denies:: Musculoskeletal Trauma Hx of Psycho/Social Problems?: No Psycho Social History: Denies:: Anxiety Bipolar Disorder Hx Depression Suicide Attempt Hx Surgeries?: Yes (HYSTERECTOMY, CARDIAC STENT, COLON, JOCELYN HIPS) Other History: Positive for:: Cancer (colon) Hospitalization (colon cancer, hip replacements, childbirth x4) Denies:: Thyroid Disease History Blood Transfusions: Positive for:: Accept Blood Products? Denies:: Blood Transfusions Hx Diabetes: No Hx Alcohol Use: Yes (1 drink per day)Hx Substance Use: No Smoking Status: Current Every Day Smoker Have You Smoked inLast 12 mo: YesApprox How Many Cigarettes/day: 1/2pk per day Stop/Bang Treated for Sleep Apnea?: No Do You Have a CPAP Machine?: No S-Snoring: Do You Snore Loudly: No T-Tired: feel tired, fatigued: No O-Obsered: Observed not breath: No P-Blood Pressure: treated: No B- Body Mass Index > 35 kg/m2: No A- Age over 50: Yes N- Neck Large Circumference: No G- Gender Male: No TERRY Total Score: 0 Risk Assessment Category Category 1A: Patient has history of documented sleep apnea, and HAS NOT received any narcotic, sedative or anesthesia administration during this stay. Category 1B: Patient has history of documented sleep apnea, and HAS received any narcotic , sedative or anesthesia administration during this stay Category 2: Patient has SUSPECTED Obstructive Sleep Apnea, and HAS received any narcotic , sedative or anesthesia administration during this stay. Category 3: Patient has SUSPECTED Obstructive Sleep Apnea and HAS NOT received narcotic, sedative or anesthesia administration during this stay. Category 4: Outpatient in Procedural Areas with known sleep apnea or who screen positive for High Risk via the STOP/BANG questionnaire. Exam Exam Vital Signs Vital Signs Date Time Temp Pulse Resp B/P Pulse Ox O2 Delivery O2 Flow Rate FiO2 11/03/16 13:17 37.2 61 16 127/67 90 Room Air 11/03/16 08:08 37.6 66 16 129/54 90 Room Air 11/03/16 08:00 67 General Appearance: Alert, Oriented X3, Cooperative, No Acute Distress HEENT/AIRWAY: MP 2, Neck Movement (FROM), Other (Poor dentition) Lungs: Clear to Auscultation, Clear to Percussion Heart: Exam Unremarkable, Regular Rate/Rhythm Meds/Labs/Diagnostics Admission Meds Current Medications Metronidazole/ Sodium Chloride/ Premix (Flagyl Inj/IV Premix) 100 ml @ 200 mls/ hr Q12 IV Last administered on 11/03/16 08:16; Start 11/02/16 at 20:30 Polyethylene Glycol/ Electrolytes (Colyte) 4,000 ml ONCE ONCE PO Last administered on 11/02/16 16:41; Start 11/02/16 at 16:00; Stop 11/02/16 at 16:01; Status DC Atorvastatin Calcium (Lipitor) 40 mg DAILY PO Last administered on 11/03/16 08 :21; Start 11/03/16 at 08:30 Carvedilol 6.25 mg 6.25 mg BID PO Last administered on 11/03/16 08:20; Start 11/02/16 at 20:30 Potassium Chloride/Dextrose/ Water (Potassium Chloride Inj/D5W) 515 ml @ 171.667 mls/hr Q3H ONCE IV Last administered on 11/03/16 10:12; Start at 07:15; Stop 11/03/16 at 10:14; Status DC Labs Test 11/02/16 09:00 11/03/16 05:20 11/03/16 08:20 Magnesium Level 2.0mg/dL (1.6-2.6) Lipase 21U/L (13-60) Hold [place] Top Tube Received (Received) White Blood Count 16.6th/mm3 (3.8-10.1) Red Blood Count 3.95mil/mm3 (3.90-5.20) Hemoglobin 12.1g/dL (12.0-15.6) Hematocrit 35.4% (35.0-46.0) Mean Corpuscular Volume 89.6fL (81-100) Mean Corpuscular Hemoglobin 30.6pg (27.0-35.0) Mean Corpuscular Hemoglobin Concent 34.2% (32.0-37.0) Red Cell Distribution Width 15.4% (12.3-15.4) Platelet Count 235bil/L (150-400) Neutrophils (%) (Auto) 81% (40-74) Lymphocytes (%) (Auto) 11% (14-46) Monocytes (%) (Auto) 8% (4-12) Eosinophils (%) (Auto) 0% (0-5) Basophils (%) (Auto) 0% (0-3) Hematology Comments Sodium Level 140mEq/L (134-144) Potassium Level 3.4mEq/L (3.5-5.2) Chloride Level 105mEq/L (97-108) Carbon Dioxide Level 20mmol/L (18-29) Blood Urea Nitrogen 10mg/dL (8-27) Creatinine 0.57mg/dL (0.57-1.00) Estimat Glomerular Filtration Rate 144mL/min (>59) Glucose Level 93mg/dL (60-99) Calcium Level 8.5mg/dL (8.5-10.1) Total Bilirubin 0.6mg/dL (0.0-1.2) Aspartate Amino Transf (AST/SGOT) 20U/L (0-50) Alanine Aminotransferase (ALT/SGPT) 15U/L (0-32) Alkaline Phosphatase 95U/L (25-165) Total Protein 5.5g/dL (6.4-8.4) Albumin 3.1g/dL (3.4-5.0) Lactic Acid Level 0.7mmol/L (0.4-2.0) Plan Impression Patient chart reviewed, patient interviewed and anesthestic plan with risks, benefits, and alternatives discussed, and informed consent obtained. ASA Physical Status: ASA3 Severe Disease Anesthetic Plan: MAC Bene/Risks/Altern/Consents: Yes HP Complete Prior to Induction: Yes Himanshu Hernandez MD Nov 03, 2016 14:41
--- NOTE | 2016-11-03 15:26 | NUR ---
Colonoscopy/EGD Pt sleeping much of the shift on and off, getting up to use the bathroom. Denied pain. Denied nausea. Remained NPO for procedure. She was picked up at 1500 and brought to [facility] by imelda to do her colonoscopy/EGD.
--- NOTE | 2016-11-03 15:26 | PCM.ANEP1 ---
Post Anesthesia PACU Phase 1 Assessment Vital Signs Vital Signs Date Time Temp Pulse Resp B/P Pulse Ox O2 Delivery O2 Flow Rate FiO2 11/03/16 14:48 37.2 69 14 119/58 89 Room Air 11/03/16 13:17 37.2 61 16 127/67 90 Room Air 11/03/16 08:08 37.6 66 16 129/54 90 Room Air 11/03/16 08:00 67 Anesthetic Administered: MAC Level of Alertness: Awake, talking RINCON's with Equal Strength: Yes Pain: No Pain Scale Score: 3 Nausea or Vomiting: No CV Function & Hydration Stable: Yes Airway Device: Lungs: Clear to Auscultation, Clear to Percussion PACU Phase 2 Assessment Complications: No Follow up Care: No Patient Instructions Provided: N/A Comments See anesth record for PACU VS. PACU VSS Himanshu Hernandez MD Nov 03, 2016 15:26
--- NOTE | 2016-11-03 16:25 | ENDO ---
[address] [address] ENDOSCOPY PROCEDURE PATIENT: WEN LE : 1930 MR#: [id number] ADMIT: 11/02/2016 JOB ID: [id number] DATE OF SERVICE: 11/03/2016 TYPE OF OPERATION: 1. Esophagogastroduodenoscopy with biopsy. 2. Colonoscopy with biopsy. PREOPERATIVE DIAGNOSIS(ES): Abnormal CAT scan and rectal bleeding. POSTOPERATIVE DIAGNOSIS(ES): 1. Widely open, patent Schatzki ring, status post biopsy. 2. Mild nonerosive gastritis. 3. No mass was seen in the stomach. 4. A loss of architecture with bluish hemorrhagic nodules with submucosal hemorrhage with linear ulceration of the colon most consistent with ischemic colitis at 25 cm status post biopsy. ANESTHESIA: Monitored anesthesia care. COMPLICATIONS: None. BLOOD LOSS: Minimal. DESCRIPTION OF PROCEDURE: After risks and benefits were explained to the patient, informed consent was obtained. After anesthesia was administered, an upper endoscope was inserted in the mouth and intubated into the esophagus, stomach, second portion of duodenum and mucosa carefully examined. After the procedure was done, the scope withdrawn and the procedure terminated. A colonoscope was then inserted from the rectum to the sigmoid colon and mucosa carefully examined. Prep of the patient was fair. After the procedure was done, the scope withdrawn and the procedure terminated. FINDINGS: Upon inspection of the esophagus, the esophagus was normal without masses, ulcers, or lesions except for widely open, patent Schatzki ring at 40 cm from incisors. Z-line located at 40 cm from incisors. Upon entry into the stomach, there is mild nonerosive gastritis that was seen. Retroflexion was normal. No mass was seen in the stomach or ulcers, duodenal bulb, first and second portion. Biopsies taken of the duodenum, antrum, body and distal esophagus. Upon inspection of the anus, there were no masses, hemorrhoids, ulcers, fissures that were seen. Throughout the entire examination, there appeared to be at 25 cm from the anus a linear ulcer that was seen along with loose hemorrhagic appears to be nodules with perhaps submucosal bleeding that was seen starting at 25 cm consistent with ischemic colitis. Biopsies were taken very carefully at this region. The scope was then stopped and the scope was withdrawn. IMPRESSIONS: 1. Mild nonerosive gastritis. 2. Widely open, patent Schatzki ring. 3. A loss of architecture with bluish hemorrhagic nodules with submucosal hemorrhage with linear ulceration of the colon most consistent with ischemic colitis at 25 cm status post biopsy RECOMMENDATIONS: 1. Await pathology results. 2. Recommendations per General Surgery consultation given these findings. 3. IV hydration. 4. N.p.o. except for medications. The rest of the recommendations per GI inpatient consultation team. STACIAD
[2016-11-04] VITALS (9 sets, daily range): BP systolic 119–171; BP diastolic 62–81; PULSE 60–68; RESP 15–18; O2SAT 92–96
[2016-11-04 03:35] LABS: APPEARANCE,URINE CLEAR (CLEAR,HAZY); COLOR,URINE YELLOW (YELLOW); OCCULT BLOOD,URINE SMALL (NEGATIVE)
[2016-11-04 03:36] LABS: UROBILINOGEN,URINE NORMAL (NORMAL)
[2016-11-04] MEDS ORDERED: KCl 40 mEq/D5W 500 mL 40 MEQ in IV Premix 1 EACH IV ONE (05:30)
[2016-11-04] MEDS: 0.9% Sodium Chloride 1,000 ML IV SCH (05:47)
[2016-11-04 06:01] LABS: BASOPHILS % (AUTO) 0.2 % (0-3); EOSINOPHILS % (AUTO) 2.2 % (0-5); MONOCYTES % (AUTO) 10.3 % (4-12); Mean Corpuscular Hemoglobin 30.4 pg (27.0-35.0); Mean Corpuscular Volume 91.6 fL (81-100); NEUTROPHILS % (AUTO) 73.4 % (40-74); Platelet Count 223 bil/L (150-400)
--- NOTE | 2016-11-04 06:20 | NUR ---
BMs, Potassium: Everytime pt was up to the BSC this shift pt had a very small, slightly larger than a fifty-cent coin, bloody mucous BM. Color did lighten up by this morning, a more dilute red. Denies dizziness when up. Potassium level 3.2. ordered a Potassium rider that is infusing at this time. Tele has been SR 60s.
[2016-11-04] MEDS ORDERED: Potassium Chloride Inj 30 MEQ in Dextrose 5% 500 ML IV ONE (07:10)
[2016-11-04 07:31] LABS: Magnesium 1.6 mg/dL (1.6-2.6); Phosphorus 2.1 mg/dL (2.5-4.9)
[2016-11-04] MEDS: Dextrose 5% 0.9% NaCl 1,000 ML IV SCH ×2 (09:51→17:20)
[2016-11-04] MEDS: metroNIDAZOLE Inj 500 MG in IV Premix 1 EACH IV SCH ×2 (09:56→20:48)
--- NOTE | 2016-11-04 10:31 | PCM.PNMED ---
Subjective Date of Service Nov 04, 2016 Subjective Patient seen and examined. She complains of mild headache, likely 2/2 nicotine withdrawl. Vitals noted. Exam Vital Signs Vital Sign - Last Date Time Temp Pulse Resp B/P Pulse Ox O2 Delivery O2 Flow Rate FiO2 11/04/16 10:08 36.5 66 18 153/70 96 Nasal Cannula 1.00 Intake and Output 11/03/16 11/03/16 11/04/16 Cumulative From/Thru 15:00 23:00 07:00 11/02/16 08:18 - 11/04/16 06:13 Intake Total 1379 ml 1165 ml 7166 ml Output Total 1055 ml 950 ml 2505 ml Balance 324 ml 215 ml 4661 ml Intake Oral 0 ml 0 ml 3254 ml IV Total 1379 ml 1165 ml 3912 ml Output Urine Total 1050 ml 950 ml 2500 ml Urine/Stool Mix 5 ml 5 ml # Voids 10 # Bowel Movements 3 2 15 Exam General/Constitutional: Awake, Alert Respiratory / Chest: Atraumatic, Breath sounds NL, Breath sounds = bilat Cardiovascular: Heart rate NL, Regular rhythm, II/V systolic murmur Lower Ext Edema: Positive: Bilateral 1+ Abdomen: Soft, LLQ pain, improved. Back: Atraumatic, Full range of motion Lab and Diagnostics Result Diagram: 11/04/16 0530 11/04/16 0250 X-Rays, CTs and MRIs CT abd IMPRESSION: 1. Circumferential wall thickening of the splenic flexure and descending colon would be consistent with colitis of uncertain etiology. Differential diagnoses would include infectious or pseudomembranous colitis, underlying inflammatory bowel disease, or ischemic colitis. 2. 9.6 x 7.3 x 7.0 cm heterogeneously enhancing mass adjacent to the lesser curvature of the stomach. Differential diagnoses would include GI stromal tumor versus unusual manifestation of colon carcinoma metastasis. 3. Bilateral renal cortical and parapelvic cysts, larger and more numerous on the right. 4. 3.7 x 3.5 cm infrarenal abdominal aortic aneurysm. Additional Diagnostics MRA abd IMPRESSION: 1. Celiac access and superior mesenteric artery are patent. A likely inferior mesenteric artery is identified and is patent. 2. There is a 3.8 cm distal abdominal aortic fusiform aneurysm. Recommend continued followup with CT or ultrasound. 3. Colonic wall thickening and mass in or adjacent to the stomach wall better seen on today's CT. Assessment & Plan 85 y/o female w/ a hx of HTN, and colon cancer (s/p resection, chemo and radiation in 2001) who is coming in with severe lower abdominal pain. >Abdominal pain - CT scan as noted above : concerns for ischemic colitis vs infectious colitis - MRA - patent celiac and mesenteric arteries - leukocytosis , trended down - Hgb stable, tended down, but wnl - continue emperic abx : levo + flagyl - Colonoscopy and endoscopy results noted, ishemic colitis - GI on board - Surgery on board - diet recs as per surgery > Abdominal mass - 9.6 x 7.3 x 7.0 cm heterogeneously enhancing mass adjacent to the lesser curvature of the stomach - CEA ordered -discussed the case with Dr. Henson for Ct guided biopsy, she mentioned the mass is fluid filled (likely hematoma), could be aspirated superficially however will be hard to get a tissue sample, recommend getting US abd first > Hypercholetrimia - continue home meds > HTN - continue carvedilol, - amlodipine being held > Abdominal Artery aneurysm - <5.5 cms in size, will need outpatient follow up Patient likely to stay > 2 midnights due to complexity of the disease VTE Prophylaxis: SCDs VTE Mechanical Devices: Intermittant Pneumatic CD Resuscitation Status: DNR/DNI:Do Not Resuscitate/Intubate Time spent 35 mins Gilmar Mauro MD Nov 04, 2016 10:31
--- NOTE | 2016-11-04 10:35 | PCM.PNSURG ---
Subjective Date of Service: Nov 04, 2016 Date of Service: Nov 04, 2016 Visit Information: Reason for Visit Abdominal Pain,Colitis Surgery/Surgery Date Post-Op Day # Date of Admission: Nov 02, 2016 at 11:45 Hospital Day # 3 Subjective: The patient reports significantly improvement related pain & nausea since admission. She feels weak getting out of bed reporting small bowel movements with BRB after recent colon biopsy. However pain has been adequately controlled. She will see gastroenterology who has confirmed ischemic colitis, & gastric tumor; recommending CT-guided gastric biopsy. Gastrointestinal: No N/V Pain Management: Good Pain Control Postop Activity: Ambulate with Assist Objective Vital Sign- Last 8 Hours Date Time Temp Pulse Resp B/P Pulse Ox O2 Delivery O2 Flow Rate FiO2 11/04/16 10:08 36.5 66 18 153/70 96 Nasal Cannula 1.00 11/04/16 09:09 68 11/04/16 07:30 Supplement Oxygen 11/04/16 05:55 36.9 63 18 138/62 92 Nasal Cannula 1.00 11/04/16 05:34 Supplement Oxygen Intake and Output- Last 8 Hour 11/04/16 Cumulative From/Thru 07:00 11/02/16 08:18 - 11/04/16 06:13 Intake Total 1165 ml 7166 ml Output Total 950 ml 2505 ml Balance 215 ml 4661 ml Intake Oral 0 ml 3254 ml IV Total 1165 ml 3912 ml Output Urine Total 950 ml 2500 ml Urine/Stool Mix 5 ml # Voids 10 # Bowel Movements 2 15 General: Alert, Cooperative, No Acute Distress Lungs: Clear to Auscultation Heart: Exam Unremarkable Abdomen: Soft, Appropriately tender (mostly in the LLQ), Distended (Mild), Tympanic (Mild) Extremities: Thigh&Calf Soft/Nontender Neuro: Normal Speech Result Diagram: 11/04/16 0530 11/04/16 0250 Assessment & Plan Impression Primary Diagnoses: 1. Abdominal pain with rectal bleeding 2. Ischemic colitis: Improving with conservative management recommend continued antibiotics, mobilization, & slow diet advancement. Other Medical & Surgical History: History of colon cancer status post resection and radiation treatment 2001 History of Hysterectomy History of Cardiac stent Colonoscopy History of Bilateral hip replacement History Cataracts surgery Glaucoma Dysphagia Sinus problem Hypertension Dyspnea GERD Endometriosis Problems: Plan 1. Advanced to clear liquid diet until no tenderness on physical exam 2. Ambulate with physical therapy 3. Continue medical management with Attending hospitalist team 4. Defer to gastroenterology recommendations for CT-guided gastric tumor biopsy on an outpatient basis vs. direct complete elective tumor removal when medically optimized. 5. The patient will eventually need outpatient general surgery follow-up for reevaluation of colitis & consider possible gastric tumor removal 6. Consider carvedilol & amlodipine effect on the splenic blood flow when the patient eventually discharges. VTE Prophylaxis: SCDs Resuscitation Status: DNR/DNI:Do Not Resuscitate/Intubate Maximino Caruso PA-C Nov 04, 2016 10:35
[2016-11-04] MEDS ORDERED: Sodium Phosphate Inj 20 MEQ in Dextrose 5% 250 ML IV ONE (10:40)
--- NOTE | 2016-11-04 10:53 | NUR ---
Pharmacy New orders for Sodium phosphate IV in unverified status.
--- NOTE | 2016-11-04 11:58 | NUR ---
changed NPO to clears Addendum: 11/04/16 at 1159 by BONNIE GIRALDO RN Amended: Links added.
--- NOTE | 2016-11-04 13:35 | PCM.PNSURG ---
Subjective Date of Service: Nov 04, 2016 Date of Service: Nov 04, 2016 Visit Information: Subjective: Patient is status post EGD and colonoscopy yesterday. The colonoscopy is most consistent grossly with ischemic colitis. The CAT scan abdomen pelvis was reviewed with radiology this am and the mass is amenable to ct guided bx. Postop General: No Complaints Objective Vital Sign- Last 8 Hours Date Time Temp Pulse Resp B/P Pulse Ox O2 Delivery O2 Flow Rate FiO2 11/04/16 10:08 36.5 66 18 153/70 96 Nasal Cannula 1.00 11/04/16 09:09 68 11/04/16 07:30 Supplement Oxygen 11/04/16 05:55 36.9 63 18 138/62 92 Nasal Cannula 1.00 11/04/16 05:34 Supplement Oxygen Intake and Output- Last 8 Hour 11/04/16 Cumulative From/Thru 07:00 11/02/16 08:18 - 11/04/16 06:13 Intake Total 1165 ml 7166 ml Output Total 950 ml 2505 ml Balance 215 ml 4661 ml Intake Oral 0 ml 3254 ml IV Total 1165 ml 3912 ml Output Urine Total 950 ml 2500 ml Urine/Stool Mix 5 ml # Voids 10 # Bowel Movements 2 15 General: Oriented X3 Neck: Supple Lungs: Clear to Auscultation Heart: Exam Unremarkable Abdomen: Benign, Soft, Appropriately tender (llq), Distended, Normoactive bowel tones Extremities: Distal Pulses Palpable Result Diagram: 11/04/16 0530 11/04/16 0250 Assessment & Plan Impression This is an 85-year-old, female with history of colon cancer cx 1999, status post colon resection, chemo x 5 rounds and XRT, hypertension. The patient finished chemotherapy in 2001. Presents here with left lower quadrant pain, now elevated white count with bloody diarrhea. At this point in time, I am concerned that the patient most likely may have ischemic colitis. The patient has an elevated lactic acid level of 2.7, along with significant abdominal left lower quadrant pain and also a white count of 21.3. At this point, in time, I do recommend that the patient be put on broad-spectrum antibiotics for most likely ischemic colitis, and have an EGD and colonoscopy to evaluate for her rectal bleeding. General Surgery consultation should also be consulted for likely ischemic colitis. I am also concerned about the greater than 50% luminal stenosis at SMA. I recommend mesenteric angiogram to evaluate the extent of the atherosclerotic disease in the abdominal mesentery and depending of findings, pt may need revascularization. mesenteric angiogram 11/02/2016- IMPRESSION: 1. Celiac access and superior mesenteric artery are patent. A likely inferior mesenteric artery is identified and is patent. 2. There is a 3.8 cm distal abdominal aortic fusiform aneurysm. Recommend continued followup with CT or ultrasound. 3. Colonic wall thickening and mass in or adjacent to the stomach wall better seen on today's CT. egd/colon 11/03/2016- IMPRESSIONS: 1. Mild nonerosive gastritis. 2. Widely open, patent Schatzki ring. 3. A loss of architecture with bluish hemorrhagic nodules with submucosal hemorrhage with linear ulceration of the colon most consistent with ischemic colitis at 25 cm status post biopsy RECOMMENDATIONS: 1. Await pathology results. 2. Recommendations per General Surgery consultation given these findings. 3. IV hydration. 4. N.p.o. except for medications. ct abdomen pelvis contrast 11/02/2016- IMPRESSION: 1. Circumferential wall thickening of the splenic flexure and descending colon would be consistent with colitis of uncertain etiology. Differential diagnoses would include infectious or pseudomembranous colitis, underlying inflammatory bowel disease, or ischemic colitis. 2. 9.6 x 7.3 x 7.0 cm heterogeneously enhancing mass adjacent to the lesser curvature of the stomach. Differential diagnoses would include GI stromal tumor versus unusual manifestation of colon carcinoma metastasis. 3. Bilateral renal cortical and parapelvic cysts, larger and more numerous on the right. 4. 3.7 x 3.5 cm infrarenal abdominal aortic aneurysm. Recs: 1) ok to start clear liquid diet today if ok with gen surgery 2) await bx results 3) ct guided bx of abdominal mass seen on CT abdomen pelvis 11/02/2016 4) serial hcts and abdominal exams 5) ivfs 6) Recs per Gen surgery will cont to follow Problems: VTE Prophylaxis: SCDs Resuscitation Status: DNR/DNI:Do Not Resuscitate/Intubate Edis Lorenz MD Nov 04, 2016 13:35
--- NOTE | 2016-11-04 14:25 | NUR ---
Mentation alert and orientedX3. Able to make needs known. stable mood. BP 123/64, pulse 60, Temp 97.9, Oxygen RA 95% RA. Denies further headaches,nausea, abdominal pain or vomiting. ABD ultrasound at bed side in progress. Continuous on IV ABO as ordered. per technology resource teacher Tele SR60. Surgery PALindac and Dr. Lorenz at bed side this morning. C/o headaches once this shift and PRN Tylenol effective. potassium normal per lab results. call light with in reach for safety with appropriate use. continue to monitor.
--- NOTE | 2016-11-04 15:02 | DRSVH ---
PROCEDURE: US ABDOMEN, LIMITED ([id number]) INDICATIONS: stomach mass TECHNIQUE: Real-time focused scanning was performed of the abdomen, with image documentation. COMPARISON: [facility], CT, CT ABD PELVIS W CON, 11/02/2016, 10:09. FINDINGS: Previously identified epigastric mass measuring 9.7 x 8.1 x 7.4 cm, as described on the [facility] [place] CT dated 11/02/16. There are areas of internal vascularity and solid appearing component. Fluid fluid levels are noted. IMPRESSION: Heterogeneous perigastric mass demonstrating internal vascularity Dictated by: Lorne Pike M.D. on 11/04/2016 at 13:56 Approved by: Lorne Pike M.D. on 11/04/2016 at 14:00
[2016-11-04] MEDS: levoFLOXacin Inj 750 MG in IV Premix 1 EACH IV SCH (16:24)
[2016-11-05] VITALS (7 sets, daily range): BP systolic 128–152; BP diastolic 64–83; PULSE 59–67; RESP 16–18; O2SAT 93–96
[2016-11-05] MEDS: Dextrose 5% 0.9% NaCl 1,000 ML IV SCH ×3 (03:01→21:43)
[2016-11-05 05:29] LABS: BASOPHILS % (AUTO) 0.3 % (0-3); EOSINOPHILS % (AUTO) 4.3 % (0-5); MONOCYTES % (AUTO) 12.2 % (4-12); Mean Corpuscular Hemoglobin 30.9 pg (27.0-35.0); Mean Corpuscular Volume 90.8 fL (81-100); NEUTROPHILS % (AUTO) 65.8 % (40-74); Platelet Count 241 bil/L (150-400)
[2016-11-05 06:02] LABS: Phosphorus 2.4 mg/dL (2.5-4.9)
--- NOTE | 2016-11-05 06:42 | NUR ---
Abd pain, Headache: Pt medicated for abdominal discomfort and headache x1. Stated stomach was "churning" again at that time. Did get up to the BSC, passing flatus and a very small mucous BM, mostly brown in color.
[2016-11-05] MEDS ORDERED: KCl 40 mEq/D5W 500 mL 40 MEQ in IV Premix 1 EACH IV ONE (07:10)
[2016-11-05] MEDS ORDERED: Potassium Phos (mEq) Inj 40 MEQ in Dextrose 5% 500 ML IV ONE (07:35)
--- NOTE | 2016-11-05 07:56 | PCM.PNMED ---
Subjective Date of Service Nov 05, 2016 Subjective Patient seen and examined. Tolerating oral liquids. Vitals noted. Exam Vital Signs Vital Sign - Last Date Time Temp Pulse Resp B/P Pulse Ox O2 Delivery O2 Flow Rate FiO2 11/05/16 04:04 36.8 59 18 128/64 94 Room Air 11/04/16 13:35 1.00 Intake and Output 11/04/16 11/04/16 11/05/16 Cumulative From/Thru 15:00 23:00 07:00 11/02/16 08:18 - 11/05/16 06:31 Intake Total 1600 ml 8766 ml Output Total 2425 ml 4930 ml Balance -825 ml 3836 ml Intake Oral 400 ml 3654 ml IV Total 1200 ml 5112 ml Output Urine Total 2425 ml 4925 ml Urine/Stool Mix 5 ml # Voids 10 # Bowel Movements 2 17 Exam General/Constitutional: Awake, Alert Respiratory / Chest: Atraumatic, Breath sounds NL, Breath sounds = bilat Cardiovascular: Heart rate NL, Regular rhythm, II/V systolic murmur Lower Ext Edema: Positive: Bilateral 1+ Abdomen: Soft, LLQ pain, improved. Back: Atraumatic, Full range of motion Lab and Diagnostics Result Diagram: 11/05/16 0500 11/05/16 0500 X-Rays, CTs and MRIs CT abd IMPRESSION: 1. Circumferential wall thickening of the splenic flexure and descending colon would be consistent with colitis of uncertain etiology. Differential diagnoses would include infectious or pseudomembranous colitis, underlying inflammatory bowel disease, or ischemic colitis. 2. 9.6 x 7.3 x 7.0 cm heterogeneously enhancing mass adjacent to the lesser curvature of the stomach. Differential diagnoses would include GI stromal tumor versus unusual manifestation of colon carcinoma metastasis. 3. Bilateral renal cortical and parapelvic cysts, larger and more numerous on the right. 4. 3.7 x 3.5 cm infrarenal abdominal aortic aneurysm. Additional Diagnostics MRA abd IMPRESSION: 1. Celiac access and superior mesenteric artery are patent. A likely inferior mesenteric artery is identified and is patent. 2. There is a 3.8 cm distal abdominal aortic fusiform aneurysm. Recommend continued followup with CT or ultrasound. 3. Colonic wall thickening and mass in or adjacent to the stomach wall better seen on today's CT. US abd IMPRESSION: Heterogeneous perigastric mass demonstrating internal vascularity Assessment & Plan 85 y/o female w/ a hx of HTN, and colon cancer (s/p resection, chemo and radiation in 2001) who is coming in with severe lower abdominal pain. >Abdominal pain - CT scan as noted above : concerns for ischemic colitis vs infectious colitis - MRA - patent celiac and mesenteric arteries - leukocytosis , trended down - Hgb stable - continue emperic abx : levo + flagyl - Colonoscopy and endoscopy results noted, ishemic colitis - GI on board - Surgery on board - on liquid diet, will advance as tolerated. > Abdominal mass - 9.6 x 7.3 x 7.0 cm heterogeneously enhancing mass adjacent to the lesser curvature of the stomach - CEA ordered -discussed the case with Dr. Henson for Ct guided biopsy, she mentioned the mass is fluid filled (likely hematoma), could be aspirated superficially however will be hard to get a tissue sample - US abd done as recommended, results as above. Discussed with surgery,Dr. Shepherd, recommended to let ischemic bowel resolve before pursuing biopsy > Hypercholetrimia - continue home meds > HTN - continue carvedilol, - amlodipine stopped > Abdominal Artery aneurysm - <5.5 cms in size, will need outpatient follow up Patient likely to stay > 2 midnights due to complexity of the disease VTE Prophylaxis: SCDs VTE Mechanical Devices: Intermittant Pneumatic CD Resuscitation Status: DNR/DNI:Do Not Resuscitate/Intubate Time spent 35 mins Gilmar Mauro MD Nov 05, 2016 07:56
--- NOTE | 2016-11-05 09:38 | PCM.PNSURG ---
Subjective Date of Service: Nov 05, 2016 Date of Service: Nov 05, 2016 Visit Information: Reason for Visit Abdominal Pain,Colitis Surgery/Surgery Date Post-Op Day # Date of Admission: Nov 02, 2016 at 11:45 Hospital Day # 4 Subjective: The patient reports significantly improvement related pain & nausea since admission. She is tolerating a clear liquid diet without significant nausea or vomiting. She feels better getting out of bed reporting small bowel movements. Her pain has been adequately controlled. The patient has seen gastroenterology who has confirmed ischemic colitis, & gastric tumor. Ultrasound completed yesterday. Postop General: No Complaints Gastrointestinal: Tolerating Oral Feedings, No N/V, Passing Stool Pain Management: Good Pain Control Postop Activity: Ambulate with Assist Objective Vital Sign- Last 8 Hours Date Time Temp Pulse Resp B/P Pulse Ox O2 Delivery O2 Flow Rate FiO2 11/05/16 08:53 60 11/05/16 08:06 36.7 59 18 147/83 94 Room Air 11/05/16 04:04 36.8 59 18 128/64 94 Room Air Intake and Output- Last 8 Hour 11/05/16 Cumulative From/Thru 07:00 11/02/16 08:18 - 11/05/16 06:31 Intake Total 1600 ml 8766 ml Output Total 2425 ml 4930 ml Balance -825 ml 3836 ml Intake Oral 400 ml 3654 ml IV Total 1200 ml 5112 ml Output Urine Total 2425 ml 4925 ml Urine/Stool Mix 5 ml # Voids 10 # Bowel Movements 2 17 General: Alert, Cooperative, No Acute Distress Lungs: Clear to Auscultation Heart: Exam Unremarkable Abdomen: Soft, Appropriately tender, Distended, Tympanic Extremities: Thigh&Calf Soft/Nontender Neuro: Normal Speech Result Diagram: 11/05/16 0500 11/05/16 0500 Assessment & Plan Impression Primary Diagnoses: 1. Abdominal pain with rectal bleeding 2. Ischemic colitis: HD # 3 Improving with conservative management recommend continued antibiotics, mobilization, & slow diet advancement. 3. Perigastric mass: Recommend outpatient elective evaluation and treatment after ischemic colitis is stable Other Medical & Surgical History: History of colon cancer status post resection and radiation treatment 2002 History of Hysterectomy History of Cardiac stent Colonoscopy History of Bilateral hip replacement History Cataracts surgery Glaucoma Dysphagia Sinus problem Hypertension Dyspnea GERD Endometriosis Problems: Plan 1. Advanced to clear liquid diet until no tenderness on physical exam 2. Ambulate with physical therapy 3. Continue medical management with Attending hospitalist team 4. Defer to gastroenterology recommendations for CT-guided gastric mass biopsy on an outpatient basis vs. direct complete elective mass removal when medically optimized. 5. The patient will eventually need outpatient general surgery follow-up for reevaluation of colitis & consider possible gastric mass removal 6. Consider Antihypertensive medication effects on splenic arterial blood flow when the patient eventually discharges. VTE Prophylaxis: SCDs Resuscitation Status: DNR/DNI:Do Not Resuscitate/Intubate Maximino Caruso PA-C Nov 05, 2016 09:38
[2016-11-05] MEDS: metroNIDAZOLE Inj 500 MG in IV Premix 1 EACH IV SCH ×2 (10:04→21:44)
--- NOTE | 2016-11-05 10:11 | PCM.PNMED ---
Subjective Date of Service Nov 05, 2016 Subjective GASTROENTEROLOGY PROGRESS NOTE: Attending Physician: Edis Lorenz MD Resident Physician: Augustina Herring DO No acute events overnight. Patient is resting comfortably this morning. She states that she was able to ambulate without issue in the hallway. She reports tenderness in the LLQ and loose stool occasionally with blood but states this has decreased in frequency. She denies dizziness, fever, chills, and shortness of breath. She reports mild tenderness in lower chest/epigastric area without radiation. Additionally she notes nausea yesterday evening without vomiting and currently is without nausea. Exam Vital Signs Vital Sign - Last Date Time Temp Pulse Resp B/P Pulse Ox O2 Delivery O2 Flow Rate FiO2 11/05/16 08:53 60 11/05/16 08:06 36.7 18 147/83 94 Room Air 11/04/16 13:35 1.00 Intake and Output 11/04/16 11/04/16 11/05/16 Cumulative From/Thru 15:00 23:00 07:00 11/02/16 08:18 - 11/05/16 06:31 Intake Total 1600 ml 8766 ml Output Total 2425 ml 4930 ml Balance -825 ml 3836 ml Intake Oral 400 ml 3654 ml IV Total 1200 ml 5112 ml Output Urine Total 2425 ml 4925 ml Urine/Stool Mix 5 ml # Voids 10 # Bowel Movements 2 17 Exam General: Elderly woman lying on her side, appears comfortable and in no acute distress. Communicating appropriately. HEENT: Atraumatic, no scleral icterus, mucous membranes moist/pink Lungs: Symmetric chest rise with equal air entry bilaterally. Clear to auscultation. Heart: Regular rate and rhythm, normal S1, S2 Abdomen: Protuberant and distended but soft. Tender to palpation in LLQ. Hypoactive bowel tones. Extremities: Distal pulses equal/intact. No edema Neurologic: AOx3. No focal neurologic deficit. Normal speech IVs and Medications Medications Reviewed: Medications were reviewed in detail Lab and Diagnostics Laboratory Tests Test 11/04/16 13:58 11/05/16 05:00 Sodium Level 138mEq/L (134-144) 141mEq/L (134-144) Potassium Level 4.2mEq/L (3.5-5.2) 3.4mEq/L (3.5-5.2) Chloride Level 105mEq/L (97-108) 106mEq/L (97-108) Carbon Dioxide Level 21mmol/L (18-29) 22mmol/L (18-29) Blood Urea Nitrogen 4mg/dL (8-27) 3mg/dL (8-27) Creatinine 0.48mg/dL (0.57-1.00) 0.48mg/dL (0.57-1.00) Estimat Glomerular Filtration Rate 176mL/min (>59) 176mL/min (>59) Glucose Level 126mg/dL (60-99) 123mg/dL (60-99) Calcium Level 8.2mg/dL (8.5-10.1) 8.4mg/dL (8.5-10.1) White Blood Count 10.4th/mm3 (3.8-10.1) Red Blood Count 3.91mil/mm3 (3.90-5.20) Hemoglobin 12.1g/dL (12.0-15.6) Hematocrit 35.5% (35.0-46.0) Mean Corpuscular Volume 90.8fL (81-100) Mean Corpuscular Hemoglobin 30.9pg (27.0-35.0) Mean Corpuscular Hemoglobin Concent 34.1% (32.0-37.0) Red Cell Distribution Width 15.1% (12.3-15.4) Platelet Count 241bil/L (150-400) Neutrophils (%) (Auto) 65.8% (40-74) Lymphocytes (%) (Auto) 17.2% (14-46) Monocytes (%) (Auto) 12.2% (4-12) Eosinophils (%) (Auto) 4.3% (0-5) Basophils (%) (Auto) 0.3% (0-3) Phosphorus Level 2.4mg/dL (2.5-4.9) Magnesium Level 1.6mg/dL (1.6-2.6) Microbiology 11/02/16 Stool PCR - Negative 11/04/16 Urine Culture - No growth to date Result Diagram: 11/05/16 0500 11/05/16 0500 X-Rays, CTs and MRIs 11/02/16 - CT ABDOMEN AND PELVIS WITH CONTRAST IMPRESSION: 1. Circumferential wall thickening of the splenic flexure and descending colon would be consistent with colitis of uncertain etiology. Differential diagnoses would include infectious or pseudomembranous colitis, underlying inflammatory bowel disease, or ischemic colitis. 2. 9.6 x 7.3 x 7.0 cm heterogeneously enhancing mass adjacent to the lesser curvature of the stomach. Differential diagnoses would include GI stromal tumor versus unusual manifestation of colon carcinoma metastasis. 3. Bilateral renal cortical and parapelvic cysts, larger and more numerous on the right. 4. 3.7 x 3.5 cm infrarenal abdominal aortic aneurysm. Approved by: Kendrick Sauceda M.D. on 11/02/2016 at 10:33 11/02/16 - MRA ANGIOGRAM ABDOMEN IMPRESSION: 1. Celiac access and superior mesenteric artery are patent. A likely inferior mesenteric artery is identified and is patent. 2. There is a 3.8 cm distal abdominal aortic fusiform aneurysm. Recommend continued followup with CT or ultrasound. 3. Colonic wall thickening and mass in or adjacent to the stomach wall better seen on today's CT. Approved by: Semaj Birmingham M.D. on 11/02/2016 at 16:49 11/04/16 - US ABDOMEN, LIMITED IMPRESSION: Heterogeneous perigastric mass demonstrating internal vascularity Approved by: Lorne Pike M.D. on 11/04/2016 at 14:00 . Additional Diagnostics 11/03/2016 - EGD and COLONOSCOPY w/BIOPSY PREOPERATIVE DIAGNOSIS: Abnormal CAT scan and rectal bleeding. POSTOPERATIVE DIAGNOSIS(ES): 1. Widely open, patent Schatzki ring, status post biopsy. 2. Mild nonerosive gastritis. 3. No mass was seen in the stomach. 4. A loss of architecture with bluish hemorrhagic nodules with submucosal hemorrhage with linear ulceration of the colon most consistent m,with ischemic colitis at 25 cm status post biopsy. Edsi Lorenz MD 11/03/16 1526 Assessment & Plan 85-year-old woman with a history of colon cancer s/p colon resection, chemo x5 rounds, and radiation in 2001 who presented with abdominal left lower quadrant pain and rectal bleeding. Abdominal pain likely secondary to ischemic colitis and intra-abdominal mass in patient with rectal bleeding. Patient presented with leukocytosis, elevated lactic acid, and bloody diarrhea. CT abdomen findings with circumferential wall thickening of the splenic flexure and descending colon consistent with colitis, a heterogeneously enhancing mass adjacent to the lesser curvature of the stomach, and a 3.7x3.5 cm infrarenal abdominal aortic aneurysm. MRA of the abdomen showed patent celiac access and superior mesenteric arteries as well as a inferior mesenteric artery that was also patent. After which an abdominal ultrasound was down which also showed a a perigastric mass which was heterogeneous and demonstrated internal vascularity. EGD and colonoscopy significant for Mild nonerosive gastritis, widely open, patent Schatzki ring, and submucosal hemorrhage with linear ulceration of the colon most consistent with ischemic colitis at 25 cm status post biopsy. RECOMMENDATIONS: - agree with Gen surgery. Outpt CT guided bx of abdominal mass once ischemic colitis has resolved. - General Surgery consult, recommendations greatly appreciated - Clear liquid diet and advance per surgery - Continue to monitor clinically for overt signs of bleeding as well as serial H /H. - Await pathology results. Additional problems managed by primary hospitalist: - Hyperlipidemia - Hypertension - Abdominal artery aneurysm . Pain Evaluation: Adequate Pain Control VTE Prophylaxis: SCDs VTE Mechanical Devices: Intermittant Pneumatic CD Resuscitation Status: DNR/DNI:Do Not Resuscitate/Intubate Augustina Herring DO Nov 05, 2016 10:11 Edis Lorenz MD Nov 05, 2016 13:38 Augustina Herring DO Nov 05, 2016 10:11 Augustina Herring DO Nov 05, 2016 10:11 which demonstrated internal vascularity. EGD and colonoscopy significant for Mild nonerosive gastritis., Widely open, patent Schatzki ring., and A loss of architecture with bluish hemorrhagic nodules with submucosal hemorrhage with linear ulceration of the colon most consistent with ischemic colitis at 25 cm status post biopsy RECOMMENDATIONS: Await pathology results. Recommendations per General Surgery consultation given these findings. ok to start clear liquid diet today if ok with gen surgery ct guided bx of abdominal mass seen on CT abdomen pelvis 11/02/2016 serial hcts and abdominal exams ivfs Recs per Gen surgery Additional problems managed by primary hospitalist: - Hyperlipidemia - Hypertension - Abdominal artery aneurysm . Pain Evaluation: Adequate Pain Control VTE Prophylaxis: SCDs VTE Mechanical Devices: Intermittant Pneumatic CD Resuscitation Status: DNR/DNI:Do Not Resuscitate/Intubate Augustina Herring DO Nov 05, 2016 10:11 EGD/colonoscopy FINDINGS: Upon inspection of the esophagus, the esophagus was normal without masses, ulcers, or lesions except for widely open, patent Schatzki ring at 40 cm from incisors. Z-line located at 40 cm from incisors. Upon entry into the stomach, there is mild nonerosive gastritis that was seen. Retroflexion was normal. No mass was seen in the stomach or ulcers, duodenal bulb, first and second portion. Biopsies taken of the duodenum, antrum, body and distal esophagus. Upon inspection of the anus, there were no masses, hemorrhoids, ulcers, fissures that were seen. Throughout the entire examination, there appeared to be at 25 cm from the anus a linear ulcer that was seen along with loose hemorrhagic appears to be nodules with perhaps submucosal bleeding that was seen starting at 25 cm consistent with ischemic colitis. Biopsies were taken very carefully at this region. The scope was then stopped and the scope was withdrawn. IMPRESSIONS: 1. Mild nonerosive gastritis. 2. Widely open, patent Schatzki ring. 3. A loss of architecture with bluish hemorrhagic nodules with submucosal hemorrhage with linear ulceration of the colon most consistent with ischemic colitis at 25 cm status post biopsy RECOMMENDATIONS: 1. Await pathology results. 2. Recommendations per General Surgery consultation given these findings. 3. IV hydration. 4. N.p.o. except for medications. RECOMMENDATIONS: 1) ok to start clear liquid diet today if ok with gen surgery 2) await bx results 3) ct guided bx of abdominal mass seen on CT abdomen pelvis 11/02/2016 4) serial hcts and abdominal exams 5) ivfs 6) Recs per Gen surgery Additional problems managed by primary hospitalist: - Hyperlipidemia - Hypertension - Abdominal artery aneurysm . Pain Evaluation: Adequate Pain Control VTE Prophylaxis: SCDs VTE Mechanical Devices: Intermittant Pneumatic CD Resuscitation Status: DNR/DNI:Do Not Resuscitate/Intubate Augustina Herring DO Nov 05, 2016 10:11
--- NOTE | 2016-11-05 13:20 | NUR ---
Evaluation completed. Please go to "Notes" then click on "Assessments and Notes" (bottom left corner of screen). Then select appropriate discipline tab on top of screen.
--- NOTE | 2016-11-05 15:45 | NUR ---
NUTRITION ASSESSMENT: ASSESS: 85 YO female admitted for abdominal pain. CT shows colitis, AAA, and heterogeneously enhancing mass adjacent to the lesser curvature of the stomach~possible hematoma. Pt is also s/p EGD and colonoscopy. Pt has been NPO/Clear liquids x 3 days. PMHx: Colon cancer s/p resection and chemo, Anemia, HTN LABS: Reviewed. K+ 3.4, Glu 123, Phos 2.4, Alb 3.1. MEDS: Reviewed. GI: BM x 2 (11/05) CURRENT WT: 65.5 kg. DIET: Clear liquids. PO 100%. EST. NEEDS: 1629-2917 kcals (25-30 kcals/kg BW), 80-100 g protein (1.2-1.5 g/kg BW) NUTRITION DIAGNOSIS: 1.) Inadequate oral intake related to alteration in GI tract function as evidenced by diagnosis of colitis, NPO/clear liquids x 3 days. NUTRITION INTERVENTION: 1.) Continue to advance diet as able. 2.) Will send Gelatein and Ensure clear on all trays to encourage increased/adequate po intake. MONITOR / EVAL: Diet advancement / tolerance, po intake, labs, nutritional status. Follow per moderate nutritional risk guidelines.
[2016-11-05] MEDS: levoFLOXacin Inj 750 MG in IV Premix 1 EACH IV SCH (16:34)
--- NOTE | 2016-11-05 16:54 | NUR ---
Social Work-readiness for discharge/ multidisciplinary rounds: Data:EMR Reviewed. Pt is on day 3 of hospitalization for abdominal pain per H&P. Pt is not medically stable anticipate 1-2 more days. order received for PCP appointment. Sw followed up with pt and daughter at bedside, SW role explained. Daughter states that pt has PCP appointment with Dr. Blankenship, but this is not until Dec 14. SW discussed residency clinic with daughter and she is open with this, but would like SW to call Dr. Blankenship's office. SW called Dr. Blankenship's office and was informed they could potentially get her an earlier appointment for hospital follow up, but would not be able to see pt until her establishment appointment after her hospital follow up. SW called [facility] and was able to get pt a hospital follow up for 11/[address] Fiore and establishment of care on 01/15 at 1700. [facility] informed SW that if pt needed to be seen in between these two appointment they would see pt. SW provided daughter with all the information and she would like to go with residency Clinic. SW provided her with print out of appointment times and information regarding [facility]. PT has cleared pt to return home with family no needs. No anticipated discharge needs. SW will continue to follow. Assessment:Pt who would has supportive daughter. Plan:Pt to discharge home with support from daughter when medically stable. Follow up appointment with or 11/[address] Fiore and establishment of care on 01/15 at 1700 with residency clinic. Information has been provided to daughter. PT has cleared pt to return home with family no needs. No anticipated discharge needs. SW will continue to follow. HERMAN Bermudez
--- NOTE | 2016-11-05 18:27 | NUR ---
Ambulation Pt ambulated around unit 2x during day shift, once with PT, second with [employer]. Pt able to tolerate activity, follows direction. Mostly stable on feet, will get tired and woobly. Using FWW with SBA when up, 1Passist to help get out of bed. Requires assistive device for stability. Pt had no near falls during shift.
[2016-11-06 04:35] VITALS: BP 176/93; PULSE 61; RESP 16; O2SAT 94
--- NOTE | 2016-11-06 06:22 | NUR ---
Night note: Pt was up frequently the first half of the shift to use the BSC, stated abdomen was "gurgly" and she felt like she needed to have a BM. Pt only have a very small brown, mucous BM x1 about the size of a quarter. Also stated "passing a lot of gas". Has been able to get more sleep tonight. Tylenol administered x1 for a mild headache, pt sleeping after medication.
[2016-11-06] MEDS: metroNIDAZOLE Inj 500 MG in IV Premix 1 EACH IV SCH (08:02)
[2016-11-06] MEDS: Dextrose 5% 0.9% NaCl 1,000 ML IV SCH (08:02)
--- NOTE | 2016-11-06 09:25 | PCM.PNMED ---
Subjective Date of Service Nov 06, 2016 Subjective GASTROENTEROLOGY PROGRESS NOTE: Attending Physician: Edis Lorenz MD Resident Physician: Augustina Herring DO No acute events overnight. Per nursing, patient was up frequently as she felt she needed to have a BM but only one very small BM noted. Exam Vital Signs Vital Sign - Last Date Time Temp Pulse Resp B/P Pulse Ox O2 Delivery O2 Flow Rate FiO2 11/06/16 04:35 36.8 61 16 176/93 94 Room Air 11/04/16 13:35 1.00 Intake and Output 11/05/16 11/05/16 11/06/16 Cumulative From/Thru 15:00 23:00 07:00 11/02/16 08:18 - 11/06/16 06:44 Intake Total 2916 ml 2575 ml 99009 ml Output Total 2165 ml 2350 ml 9445 ml Balance 751 ml 225 ml 4812 ml Intake Oral 2916 ml 300 ml 6870 ml IV Total 2275 ml 7387 ml Output Urine Total 2165 ml 2350 ml 9440 ml Urine/Stool Mix 5 ml # Voids 5 15 # Bowel Movements 5 1 23 Exam General: Elderly woman lying on her side, appears comfortable and in no acute distress. Communicating appropriately. HEENT: Atraumatic, no scleral icterus, mucous membranes moist/pink Lungs: Symmetric chest rise with equal air entry bilaterally. Clear to auscultation. Heart: Regular rate and rhythm, normal S1, S2 Abdomen: Protuberant and distended but soft. Tender to palpation in LLQ. Hypoactive bowel tones. Extremities: Distal pulses equal/intact. No edema Neurologic: AOx3. No focal neurologic deficit. Normal speech IVs and Medications Medications Reviewed: Medications were reviewed in detail Lab and Diagnostics Laboratory Tests 72 Hours Test 11/03/16 16:47 11/04/16 02:50 11/04/16 03:00 11/04/16 05:30 Sodium Level 136mEq/L (134-144) 139mEq/L (134-144) Potassium Level 3.3mEq/L (3.5-5.2) 3.2mEq/L (3.5-5.2) Chloride Level 103mEq/L (97-108) 106mEq/L (97-108) Carbon Dioxide Level 21mmol/L (18-29) 20mmol/L (18-29) Blood Urea Nitrogen 8mg/dL (8-27) 6mg/dL (8-27) Creatinine 0.57mg/dL (0.57-1.00) 0.45mg/dL (0.57-1.00) Estimat Glomerular Filtration Rate 144mL/min (>59) 190mL/min (>59) Glucose Level 84mg/dL (60-99) 68mg/dL (60-99) Calcium Level 8.3mg/dL (8.5-10.1) 8.0mg/dL (8.5-10.1) Phosphorus Level 2.1mg/dL (2.5-4.9) Magnesium Level 1.6mg/dL (1.6-2.6) Urine Color Yellow (YELLOW) Urine Appearance Clear (CLEAR,HAZY) Urine pH 7.0 (5.0-8.0) Urine Specific [place] 1.010 (1.003-1.035) Urine Protein Negativemg/dL (NEG,TRACE) Urine Glucose (UA) Negativemg/dL (NEGATIVE) Urine Ketones Negativemg/dL (NEGATIVE) Urine Occult Blood Small (NEGATIVE) Urine Nitrite Negative (NEGATIVE) Urine Bilirubin Negative (NEGATIVE) Urine Urobilinogen Normalmg/dL (NORMAL) Urine Leukocyte Esterase Trace (NEGATIVE) Urine RBC 3-10/hpf (0-2) Urine WBC 0-5/hpf (0-5) Urine Epithelial Cells Few/hpf (NONE-MOD) Urine Crystals None seen (NONE SEEN) Urine Bacteria Few/hpf (NONE-FEW) Urine Hyaline Casts None/lpf (NONE) Urine Granular Casts None seen (NONE SEEN) Urine Waxy Casts None seen (NONE SEEN) Urine Red Blood Cell Casts None seen (NONE SEEN) Urine White Blood Cell Casts None seen (NONE SEEN) Urine Mucus None seen (None Seen) Urine Trichomonas None seen (NONE SEEN) Urine Yeast None (NONE SEEN) Urinalysis Comment None Urine Culture Reflexed Indicated White Blood Count 12.9th/mm3 (3.8-10.1) Red Blood Count 3.82mil/mm3 (3.90-5.20) Hemoglobin 11.6g/dL (12.0-15.6) Hematocrit 35.0% (35.0-46.0) Mean Corpuscular Volume 91.6fL (81-100) Mean Corpuscular Hemoglobin 30.4pg (27.0-35.0) Mean Corpuscular Hemoglobin Concent 33.1% (32.0-37.0) Red Cell Distribution Width 15.5% (12.3-15.4) Platelet Count 223bil/L (150-400) Neutrophils (%) (Auto) 73.4% (40-74) Lymphocytes (%) (Auto) 13.7% (14-46) Monocytes (%) (Auto) 10.3% (4-12) Eosinophils (%) (Auto) 2.2% (0-5) Basophils (%) (Auto) 0.2% (0-3) Test 11/04/16 13:58 11/05/16 05:00 Sodium Level 138mEq/L (134-144) 141mEq/L (134-144) Potassium Level 4.2mEq/L (3.5-5.2) 3.4mEq/L (3.5-5.2) Chloride Level 105mEq/L (97-108) 106mEq/L (97-108) Carbon Dioxide Level 21mmol/L (18-29) 22mmol/L (18-29) Blood Urea Nitrogen 4mg/dL (8-27) 3mg/dL (8-27) Creatinine 0.48mg/dL (0.57-1.00) 0.48mg/dL (0.57-1.00) Estimat Glomerular Filtration Rate 176mL/min (>59) 176mL/min (>59) Glucose Level 126mg/dL (60-99) 123mg/dL (60-99) Calcium Level 8.2mg/dL (8.5-10.1) 8.4mg/dL (8.5-10.1) White Blood Count 10.4th/mm3 (3.8-10.1) Red Blood Count 3.91mil/mm3 (3.90-5.20) Hemoglobin 12.1g/dL (12.0-15.6) Hematocrit 35.5% (35.0-46.0) Mean Corpuscular Volume 90.8fL (81-100) Mean Corpuscular Hemoglobin 30.9pg (27.0-35.0) Mean Corpuscular Hemoglobin Concent 34.1% (32.0-37.0) Red Cell Distribution Width 15.1% (12.3-15.4) Platelet Count 241bil/L (150-400) Neutrophils (%) (Auto) 65.8% (40-74) Lymphocytes (%) (Auto) 17.2% (14-46) Monocytes (%) (Auto) 12.2% (4-12) Eosinophils (%) (Auto) 4.3% (0-5) Basophils (%) (Auto) 0.3% (0-3) Phosphorus Level 2.4mg/dL (2.5-4.9) Magnesium Level 1.6mg/dL (1.6-2.6) Microbiology 11/02/16 Stool PCR- negative Result Diagram: 11/05/16 0500 11/05/16 0500 X-Rays, CTs and MRIs 11/02/16 - CT ABDOMEN AND PELVIS WITH CONTRAST IMPRESSION: 1. Circumferential wall thickening of the splenic flexure and descending colon would be consistent with colitis of uncertain etiology. Differential diagnoses would include infectious or pseudomembranous colitis, underlying inflammatory bowel disease, or ischemic colitis. 2. 9.6 x 7.3 x 7.0 cm heterogeneously enhancing mass adjacent to the lesser curvature of the stomach. Differential diagnoses would include GI stromal tumor versus unusual manifestation of colon carcinoma metastasis. 3. Bilateral renal cortical and parapelvic cysts, larger and more numerous on the right. 4. 3.7 x 3.5 cm infrarenal abdominal aortic aneurysm. Approved by: Kendrick Sauceda M.D. on 11/02/2016 at 10:33 11/02/16 - MRA ANGIOGRAM ABDOMEN IMPRESSION: 1. Celiac access and superior mesenteric artery are patent. A likely inferior mesenteric artery is identified and is patent. 2. There is a 3.8 cm distal abdominal aortic fusiform aneurysm. Recommend continued followup with CT or ultrasound. 3. Colonic wall thickening and mass in or adjacent to the stomach wall better seen on today's CT. Approved by: Semaj Birmingham M.D. on 11/02/2016 at 16:49 11/04/16 - US ABDOMEN, LIMITED IMPRESSION: Heterogeneous perigastric mass demonstrating internal vascularity Approved by: Lorne Pike M.D. on 11/04/2016 at 14:00 . Additional Diagnostics 11/03/2016 - EGD and COLONOSCOPY w/BIOPSY PREOPERATIVE DIAGNOSIS: Abnormal CAT scan and rectal bleeding. POSTOPERATIVE DIAGNOSIS(ES): 1. Widely open, patent Schatzki ring, status post biopsy. 2. Mild nonerosive gastritis. 3. No mass was seen in the stomach. 4. A loss of architecture with bluish hemorrhagic nodules with submucosal hemorrhage with linear ulceration of the colon most consistent m,with ischemic colitis at 25 cm status post biopsy. Edis Lorenz MD 11/03/16 1526 Assessment & Plan 85-year-old woman with a history of colon cancer s/p colon resection, chemo x5 rounds, and radiation in 2001 who presented with abdominal left lower quadrant pain and rectal bleeding. Abdominal pain likely secondary to ischemic colitis and intra-abdominal mass in patient with rectal bleeding. - Patient presented with leukocytosis, elevated lactic acid, and bloody diarrhea. - CT abdomen findings with circumferential wall thickening of the splenic flexure and descending colon consistent with colitis, a heterogeneously enhancing mass adjacent to the lesser curvature of the stomach, and a 3.7x3.5 cm infrarenal abdominal aortic aneurysm. - MRA of the abdomen showed patent celiac access and superior mesenteric arteries as well as a inferior mesenteric artery that was also patent. - Abdominal ultrasound also showed a a perigastric mass which was heterogeneous and demonstrated internal vascularity. - EGD and colonoscopy significant for Mild nonerosive gastritis, widely open, patent Schatzki ring, and submucosal hemorrhage with linear ulceration of the colon most consistent with ischemic colitis at 25 cm status post biopsy. RECOMMENDATIONS: - General Surgery consult, recommendations greatly appreciated - Outpt EUS FNA biopsy bx of abdominal mass once ischemic colitis has resolved instead of CT guided biopsy. - Advance diet as tolerated - Continue to monitor clinically for overt signs of bleeding as well as serial H /H. - Await pathology results. Additional problems managed by primary hospitalist: - Hyperlipidemia - Hypertension - Abdominal artery aneurysm . VTE Prophylaxis: SCDs VTE Mechanical Devices: Intermittant Pneumatic CD Resuscitation Status: DNR/DNI:Do Not Resuscitate/Intubate Augustina Herring DO Nov 06, 2016 09:25
--- NOTE | 2016-11-06 12:22 | PCM.PNSURG ---
Subjective Date of Service: Nov 06, 2016 Date of Service: Nov 06, 2016 Visit Information: Reason for Visit Abdominal Pain,Colitis w/ extra mucosal perigastric mass Surgery/Surgery Date Post-Op Day # Date of Admission: Nov 02, 2016 at 11:45 Hospital Day # 5 Subjective: Patient is feeling better today without significant related nausea, vomiting, & controlled pain. She reports passing gas and ambulating in the hallway. Her bowel movements are daily with less hematochezia. The patient would like to try advancing her diet today. Postop General: No Complaints Gastrointestinal: No N/V, Passing Flatus, Passing Stool Pain Management: No or Minimal Pain Postop Activity: Ambulating in [place] Objective Vital Sign- Last 8 Hours Date Time Temp Pulse Resp B/P Pulse Ox O2 Delivery O2 Flow Rate FiO2 11/06/16 11:14 Room Air 11/06/16 04:35 36.8 61 16 176/93 94 Room Air Intake and Output- Last 8 Hour 11/06/16 Cumulative From/Thru 07:00 11/02/16 08:18 - 11/06/16 06:44 Intake Total 2575 ml 89598 ml Output Total 2350 ml 9445 ml Balance 225 ml 4812 ml Intake Oral 300 ml 6870 ml IV Total 2275 ml 7387 ml Output Urine Total 2350 ml 9440 ml Urine/Stool Mix 5 ml # Voids 15 # Bowel Movements 1 23 General: Alert, Cooperative, No Acute Distress Lungs: Clear to Auscultation Heart: Exam Unremarkable Abdomen: Soft, Distended, Tympanic, Other (significantly improved & minimal diffuse tenderness to palpation.) Result Diagram: 11/05/16 0500 11/05/16 0500 Assessment & Plan Impression Primary Diagnoses: 1. Abdominal pain with rectal bleeding:Resolving. 2. Ischemic colitis: HD # 5 Improving with conservative management recommend mobilization, & slow diet advancement. 3. Perigastric exta-mucosal mass: Recommendations are forthcoming. Other Medical & Surgical History: History of colon cancer status post resection and radiation treatment 2002 History of Hysterectomy History of Cardiac stent Colonoscopy History of Bilateral hip replacement History Cataracts surgery Glaucoma Dysphagia Sinus problem Hypertension Dyspnea GERD Endometriosis Problems: Plan 1. Advanced diet as tolerated and if not return to clear liquids. 2. Ambulate with physical therapy. 3. Continue medical management with Attending Hospitalist Team. 4. A Surgeon will see the patient to discuss possible perigastric extra- mucolsal mass removal. 5. Consider discontinuing antibiotics unless there is an alternate indication. 6. Consider Antihypertensive medication effects on splenic arterial blood flow when the patient eventually discharges. VTE Prophylaxis: SCDs Resuscitation Status: DNR/DNI:Do Not Resuscitate/Intubate Maximino Caruso PA-C Nov 06, 2016 12:22 Maximino Caruso PA-C Nov 06, 2016 12:22
[2016-11-06 14:30] VITALS: BP 152/79; PULSE 72; RESP 16; O2SAT 93
--- NOTE | 2016-11-06 15:57 | PATH ---
SURGICAL PATHOLOGY Attending Physician:Edis Lorenz MD CASE STATUS: Signed Out PATIENT NAME: WEN LE PID: [id number] : 1930 DATE COLLECTED:11/03/2016 00:00 SPECIMEN: 1: Duodenum, Biopsy 2: Stomach, Antrum, Biopsy 3: Gastric, Biopsy 4: Esophagus, Biopsy 5: Colon, Biopsy CLINICAL HISTORY: 1). DUODENUM BIOPSY 2). ANTRUM BIOPSY, RULE OUT H.PYLORI 3). GASTRIC BODY BIOPSY, RULE OUT H.PYLORI 4). DISTAL ESOPHAGUS BIOPSY 5). COLON BIOPSY AT 25CM FINAL DIAGNOSIS: 1. Duodenum, Biopsies: Duodenal mucosa with no diagnostic abnormality. Negative for active inflammation, features of sprue, dysplasia and malignancy. 2. Stomach, Antrum, Biopsy: Antral mucosa with no diagnostic abnormality. Negative for Helicobacter organisms. Negative for intestinal metaplasia. Negative for dysplasia and malignancy. 3. Stomach, Body, Biopsy: Body-type mucosa with no diagnostic abnormality. Negative for Helicobacter organisms. Negative for intestinal metaplasia. Negative for dysplasia and malignancy. 4. Distal Esophagus, Biopsy: Squamocolumnar junctional mucosa with reflux-related changes. Negative for intestinal metaplasia. No fungal organisms identified by PAS stain. Negative for dysplasia and malignancy. 5. Colon, 25 cm, Biopsy: Colonic mucosa with atrophic crypts and fibrinopurulent exudate consistent with ischemia type changes. See comment. No evidence of dysplasia or malignancy. ICD10: K21.0 K55.9 NOTE: Part 5: The colon biopsy at 25 cm shows ulcerated colonic mucosa with atrophic crypts and predominantly fibrinopurulent exudate, consistent with ischemia type change. The differential diagnosis inlcudes ischemia due to trauma/prolapse, ischemia due to infection (ie. Enterohemorrhagic E. Coli, C. Dificile, etc.), and true vascular ischemia. GROSS DESCRIPTION: The specimen is received in five formalin filled containers labeled with the patient's name. 1). The specimen is labeled "duodenum" and consists of portions of tissue which aggregate to 0.2 x 0.2 x 0.2 CM. The specimen is entirely submitted in cassette 1A. 2). The specimen is labeled "antrum" and consists of 2 portions of tissue which aggregate to 0.3 x 0.3 x 0.2 CM. The specimen is entirely submitted in cassette 2A. 3). The specimen is labeled "gastric body" and consists of a 0.3 x 0.3 x 0.2 CM portion of tissue which is entirely submitted in cassette 3A. 4). The specimen is labeled "distal esophagus" and consists of a 0.2 x 0.2 x 0.2 CM portion of tissue which is entirely submitted in cassette 4A. 5). The specimen is labeled "colon biopsy at 25 CM" and consists of a 0.1 x 0.1 x 0.1 CM portion of tissue which is entirely submitted in cassette 5A. 11/05/2016[place] MICRO DESCRIPTION: Part 2: An immunohistochemical stain was performed to evaluate for Helicobacter organisms and is negative. A control stain showed appropriate reactivity. * This test was developed and its performance characteristics determined by [facility]. It has not been cleared or approved by the U.S. Food and Drug Administration. The FDA has determined that such clearance or approval is not necessary. This test is used for clinical purposes. It should not beregarded as investigational or for research. Part 4: An alcian blue/PAS stain was performed to evaluate for fungal organisms and is negative. A control stain showed appropriate reactivity. ICD-9 CODES: CPT CODES: 1: 05605 2: 88032 3: 10701 4: 87559 5: 52357, 64067, 61934 Electronically Signed Out Shila Goldsmith MD [facility] Pathology [facility] [address], [place] [address] Technical component performed at [facility], [facility] [address], [place], [address]
[2016-11-06] MEDS: levoFLOXacin Inj 750 MG in IV Premix 1 EACH IV SCH (16:20)
--- NOTE | 2016-11-06 17:36 | NUR ---
IV IV infiltrated to R wrist this afternoon. Levaquin IV unable to be completed. Pt is req to leave IV out due to difficulty with placement for initial IV. MD lizarraga re: request. Addendum: 11/06/16 at 1746 by MELVI NICOLAS RN MD harding'rafael keeping IV out, will switch ABO's to PO.
--- NOTE | 2016-11-06 17:41 | PCM.PNMED ---
Subjective Date of Service Nov 06, 2016 Subjective No overnight events. Exam Vital Signs Vital Sign - Last Date Time Temp Pulse Resp B/P Pulse Ox O2 Delivery O2 Flow Rate FiO2 11/06/16 14:30 37.0 72 16 152/79 93 Room Air 11/04/16 13:35 1.00 Intake and Output 11/05/16 11/05/16 11/06/16 Cumulative From/Thru 15:00 23:00 07:00 11/02/16 08:18 - 11/06/16 06:44 Intake Total 2916 ml 2575 ml 80784 ml Output Total 2165 ml 2350 ml 9445 ml Balance 751 ml 225 ml 4812 ml Intake Oral 2916 ml 300 ml 6870 ml IV Total 2275 ml 7387 ml Output Urine Total 2165 ml 2350 ml 9440 ml Urine/Stool Mix 5 ml # Voids 5 15 # Bowel Movements 5 1 23 Exam General/Constitutional: Awake, Alert Respiratory / Chest: Atraumatic, Breath sounds NL, Breath sounds = bilat Cardiovascular: Heart rate NL, Regular rhythm, II/V systolic murmur Lower Ext Edema: Positive: Bilateral 1+ Abdomen: Soft, LLQ pain, improved. Back: Atraumatic, Full range of motion IVs and Medications Medications Reviewed: Medications were reviewed in detail Lab and Diagnostics Result Diagram: 11/05/16 0500 11/05/16 0500 X-Rays, CTs and MRIs 11/02/16 - CT ABDOMEN AND PELVIS WITH CONTRAST IMPRESSION: 1. Circumferential wall thickening of the splenic flexure and descending colon would be consistent with colitis of uncertain etiology. Differential diagnoses would include infectious or pseudomembranous colitis, underlying inflammatory bowel disease, or ischemic colitis. 2. 9.6 x 7.3 x 7.0 cm heterogeneously enhancing mass adjacent to the lesser curvature of the stomach. Differential diagnoses would include GI stromal tumor versus unusual manifestation of colon carcinoma metastasis. 3. Bilateral renal cortical and parapelvic cysts, larger and more numerous on the right. 4. 3.7 x 3.5 cm infrarenal abdominal aortic aneurysm. Approved by: Kendrick Suaceda M.D. on 11/02/2016 at 10:33 11/02/16 - MRA ANGIOGRAM ABDOMEN IMPRESSION: 1. Celiac access and superior mesenteric artery are patent. A likely inferior mesenteric artery is identified and is patent. 2. There is a 3.8 cm distal abdominal aortic fusiform aneurysm. Recommend continued followup with CT or ultrasound. 3. Colonic wall thickening and mass in or adjacent to the stomach wall better seen on today's CT. Approved by: Semaj Birmingham M.D. on 11/02/2016 at 16:49 11/04/16 - US ABDOMEN, LIMITED IMPRESSION: Heterogeneous perigastric mass demonstrating internal vascularity Approved by: Lorne Pike M.D. on 11/04/2016 at 14:00 . Additional Diagnostics 11/03/2016 - EGD and COLONOSCOPY w/BIOPSY PREOPERATIVE DIAGNOSIS: Abnormal CAT scan and rectal bleeding. POSTOPERATIVE DIAGNOSIS(ES): 1. Widely open, patent Schatzki ring, status post biopsy. 2. Mild nonerosive gastritis. 3. No mass was seen in the stomach. 4. A loss of architecture with bluish hemorrhagic nodules with submucosal hemorrhage with linear ulceration of the colon most consistent m,with ischemic colitis at 25 cm status post biopsy. Edis Lorenz MD 11/03/16 1526 Assessment & Plan 85 y/o female w/ a hx of HTN, and colon cancer (s/p resection, chemo and radiation in 2001) who is coming in with severe lower abdominal pain found to have ischemic colitis and Perigastric exta-mucosal mass: >Abdominal pain due to Ischemic colitis, poa, active. - CT scan as noted above : concerns for ischemic colitis vs infectious colitis - MRA - patent celiac and mesenteric arteries - leukocytosis , trended down - Hgb stable - continue emperic abx : levo + flagyl, changed to po on 11/06. - Colonoscopy and endoscopy results noted, ishemic colitis. - GI on board- Await pathology results. Outpt EUS FNA biopsy bx of abdominal mass once ischemic colitis has resolved instead of CT guided biopsy. - Surgery- for possible perigastric extra-mucolsal mass removal as outpatient. - advanced diet, tolerating. > Abdominal mass - 9.6 x 7.3 x 7.0 cm heterogeneously enhancing mass adjacent to the lesser curvature of the stomach - CEA ordered -discussed the case with Dr. Henson for Ct guided biopsy, she mentioned the mass is fluid filled (likely hematoma), could be aspirated superficially however will be hard to get a tissue sample - US abd done as recommended, results as above. Discussed with surgery,Dr. Shepherd, recommended to let ischemic bowel resolve before pursuing biopsy - See above plan. > Hypercholetrimia - continue home meds > HTN - continue carvedilol, - amlodipine stopped > Abdominal Artery aneurysm - <5.5 cms in size, will need outpatient follow up Patient likely to stay > 2 midnights due to complexity of the disease Pain Evaluation: Adequate Pain Control VTE Prophylaxis: SCDs VTE Mechanical Devices: Intermittant Pneumatic CD Resuscitation Status: DNR/DNI:Do Not Resuscitate/Intubate Ilan Altamirano MD Nov 06, 2016 17:41
--- NOTE | 2016-11-06 17:55 | NUR ---
Activity/diet Pt amb around room and in hallway with SBA/FWW. Tolerating activity well. Pt's diet advanced to general diet, pt is tolerating so far, denies any nausea with intake. Bed in lowest, locked position and call light in reach.
[2016-11-06 20:20] VITALS: BP 174/84; PULSE 73; RESP 18; O2SAT 94
[2016-11-07 04:35] VITALS: BP 172/89; PULSE 69; RESP 18; O2SAT 95
--- NOTE | 2016-11-07 06:20 | NUR ---
BM/activity Pt continuous to have very small, soft, brown BMs. Appropriately using her call light and making her needs known. SBA to the BR with FWW. gait steady. hourly rounding done.
--- NOTE | 2016-11-07 08:01 | PCM.PNSURG ---
Subjective Date of Service: Nov 07, 2016 Date of Service: Nov 07, 2016 Visit Information: Reason for Visit Abdominal Pain, Ischemic Colitis w/ Extra-Mucosal Perigastric Mass Surgery/Surgery Date Post-Op Day # Date of Admission: Nov 02, 2016 at 11:45 Hospital Day # 6 Subjective: The patient reports this morning overall feeling much better without significant related pain, nausea, &/or vomiting. She has positive flatus & is moving her bowels daily w/ decreased hematochezia. She was tolerating a general diet & ambulating w/ FWW in the hallway. The patient also saw Dr. Alejandre yesterday to discuss outpatient appointment for ischemic colitis follow- up & elective extra-mucosal Perigastric mass removal. She will see GI to discuss inpatient vs. outpatient EUS & possible mass biopsy. Postop General: No Complaints Gastrointestinal: Tolerating Oral Feedings, No N/V, Passing Flatus, Passing Stool Pain Management: Good Pain Control, No or Minimal Pain Postop Activity: Ambulating in [place] Objective Vital Sign- Last 8 Hours Date Time Temp Pulse Resp B/P Pulse Ox O2 Delivery O2 Flow Rate FiO2 11/07/16 04:35 36.9 69 18 172/89 95 Room Air Intake and Output- Last 8 Hour 11/07/16 Cumulative From/Thru 07:00 11/02/16 08:18 - 11/07/16 05:57 Intake Total 200 ml 01368 ml Output Total 1950 ml 70360 ml Balance -1750 ml 4326 ml Intake Oral 200 ml 8370 ml IV Total 7951 ml Output Urine Total 1950 ml 69070 ml Urine/Stool Mix 5 ml # Voids 15 # Bowel Movements 2 25 General: Alert, Cooperative, No Acute Distress Lungs: Clear to Auscultation Heart: Exam Unremarkable Abdomen: Soft, Non-tender, Distended, Tympanic, Other (hypoactive bowel sound) Extremities: Thigh&Calf Soft/Nontender Neuro: Normal Speech Result Diagram: 11/05/16 0500 11/05/16 0500 Assessment & Plan Impression Primary Diagnoses: 1. Abdominal pain with rectal bleeding: Mostly Resolved 2. Ischemic colitis: HD # 6 Significantly improved with conservative medical management. Require outpatient General Surgery follow-up after obtaining old operative report. 3. Perigastric exta-mucosal mass: Defer to GI for out vs. inpatient EUS & possible bx then f/u with Dr. Alejandre afterwards. Other Medical & Surgical History: History of colon cancer status post resection and radiation treatment 2002 History of Hysterectomy History of Cardiac stent Colonoscopy History of Bilateral hip replacement History Cataracts surgery Glaucoma Dysphagia Sinus problem Hypertension Dyspnea GERD Endometriosis Problems: Plan 1. Continue general diet as tolerated. 2. Ambulate regularly w/ PT recommendations. 3. Continue medical management (e.g. HTN) with Attending Hospitalist Team. 4. Defer to Dr. Hurtado for further Extra-mucosal Perigastric Mass mass evaluation. 5. Consider discontinuing antibiotics unless there is an alternate indication. 6. Consider Antihypertensive medication effects on splenic flexure blood flow. 7. Obtain Records (i.e. operative report & hospital course) [facility]: Dr. Miguel Contreras [phone] 8. We will continue to follow until discharge from the Attending Medical Service. 9. Follow up with Dr. Alejandre in outpatient clinic after in/outpatient GI EUS & possible bx. VTE Prophylaxis: SCDs Resuscitation Status: DNR/DNI:Do Not Resuscitate/Intubate Maximino Caruso PA-C Nov 07, 2016 08:01
[2016-11-07] MEDS ORDERED: levoFLOXacin 750 mg Tablet PO SCH (08:30)
[2016-11-07 08:33] LABS: BASOPHILS % (AUTO) 0.6 % (0-3); EOSINOPHILS % (AUTO) 4.8 % (0-5); MONOCYTES % (AUTO) 11.3 % (4-12); Mean Corpuscular Hemoglobin 30.4 pg (27.0-35.0); Mean Corpuscular Volume 90.4 fL (81-100); NEUTROPHILS % (AUTO) 63.2 % (40-74); Platelet Count 301 bil/L (150-400)
--- NOTE | 2016-11-07 10:03 | PCM.PNMED ---
Subjective Date of Service Nov 07, 2016 Subjective GASTROENTEROLOGY PROGRESS NOTE: Attending Physician: Edis Lorenz MD Resident Physician: Augustina Herring DO No acute events overnight. Per nursing, patient with continuous but very small BMs. Patient reports improvement in abdominal bloating but is flume tender to palpation, particularly in lower quadrants. However, she states this too has improved. She denies diarrhea, nausea, vomiting, bloody or dark colored stool. She is interested in what she can do at home to avoid constipation, notes good affect in the past with Senna. Denies fever, chills, shortness of breath, chest pain, and dizziness. Ambulating in the hallways without difficulty. Exam Vital Signs Vital Sign - Last Date Time Temp Pulse Resp B/P Pulse Ox O2 Delivery O2 Flow Rate FiO2 11/07/16 04:35 36.9 69 18 172/89 95 Room Air 11/04/16 13:35 1.00 Intake and Output 11/06/16 11/06/16 11/07/16 Cumulative From/Thru 15:00 23:00 07:00 11/02/16 08:18 - 11/07/16 05:57 Intake Total 564 ml 1300 ml 200 ml 28976 ml Output Total 600 ml 1950 ml 73630 ml Balance 564 ml 700 ml -1750 ml 4326 ml Intake Oral 1300 ml 200 ml 8370 ml IV Total 564 ml 7951 ml Output Urine Total 600 ml 1950 ml 68169 ml Urine/Stool Mix 5 ml # Voids 15 # Bowel Movements 0 2 25 Exam General: Elderly woman, in no acute distress. Appropriately interactive. HEENT: Atraumatic, no scleral icterus, mucous membranes moist/pink Lungs: Symmetric chest rise with equal air entry bilaterally. Clear to auscultation. Heart: Regular rate and rhythm, normal S1, S2 Abdomen: Protuberant and distended but soft. Tender to palpation in LLQ. Hypoactive bowel tones. Extremities: Distal pulses equal/intact. No edema Neurologic: AOx3. No focal neurologic deficit. Normal speech IVs and Medications Medications Reviewed: Medications were reviewed in detail Lab and Diagnostics Laboratory Tests Test 11/07/16 08:25 White Blood Count 9.7th/mm3 (3.8-10.1) Red Blood Count 4.50mil/mm3 (3.90-5.20) Hemoglobin 13.7g/dL (12.0-15.6) Hematocrit 40.7% (35.0-46.0) Mean Corpuscular Volume 90.4fL (81-100) Mean Corpuscular Hemoglobin 30.4pg (27.0-35.0) Mean Corpuscular Hemoglobin Concent 33.7% (32.0-37.0) Red Cell Distribution Width 15.2% (12.3-15.4) Platelet Count 301bil/L (150-400) Neutrophils (%) (Auto) 63.2% (40-74) Lymphocytes (%) (Auto) 19.4% (14-46) Monocytes (%) (Auto) 11.3% (4-12) Eosinophils (%) (Auto) 4.8% (0-5) Basophils (%) (Auto) 0.6% (0-3) Microbiology 11/02/16 Stool PCR - Negative 11/04/16 Urine Culture - No growth (<1,000 organisms/mL) Result Diagram: 11/07/16 0825 11/05/16 0500 X-Rays, CTs and MRIs 11/02/16 - CT ABDOMEN AND PELVIS WITH CONTRAST IMPRESSION: 1. Circumferential wall thickening of the splenic flexure and descending colon would be consistent with colitis of uncertain etiology. Differential diagnoses would include infectious or pseudomembranous colitis, underlying inflammatory bowel disease, or ischemic colitis. 2. 9.6 x 7.3 x 7.0 cm heterogeneously enhancing mass adjacent to the lesser curvature of the stomach. Differential diagnoses would include GI stromal tumor versus unusual manifestation of colon carcinoma metastasis. 3. Bilateral renal cortical and parapelvic cysts, larger and more numerous on the right. 4. 3.7 x 3.5 cm infrarenal abdominal aortic aneurysm. Approved by: Kendrick Sauceda M.D. on 11/02/2016 at 10:33 11/02/16 - MRA ANGIOGRAM ABDOMEN IMPRESSION: 1. Celiac access and superior mesenteric artery are patent. A likely inferior mesenteric artery is identified and is patent. 2. There is a 3.8 cm distal abdominal aortic fusiform aneurysm. Recommend continued followup with CT or ultrasound. 3. Colonic wall thickening and mass in or adjacent to the stomach wall better seen on today's CT. Approved by: Semaj Birmingham M.D. on 11/02/2016 at 16:49 9/11/17 - US ABDOMEN, LIMITED IMPRESSION: Heterogeneous perigastric mass demonstrating internal vascularity Approved by: Lorne Pike M.D. on 11/04/2016 at 14:00 . Additional Diagnostics 11/03/2016 - EGD and COLONOSCOPY w/BIOPSY PREOPERATIVE DIAGNOSIS: Abnormal CAT scan and rectal bleeding. POSTOPERATIVE DIAGNOSIS(ES): 1. Widely open, patent Schatzki ring, status post biopsy. 2. Mild nonerosive gastritis. 3. No mass was seen in the stomach. 4. A loss of architecture with bluish hemorrhagic nodules with submucosal hemorrhage with linear ulceration of the colon most consistent m,with ischemic colitis at 25 cm status post biopsy. Edis Lorenz MD 11/03/16 1526 SURGICAL PATHOLOGY Attending Physician:Edis Lorenz MD DATE COLLECTED:11/03/2016 SPECIMEN: 1: Duodenum, Biopsy 2: Stomach, Antrum, Biopsy 3: Gastric, Biopsy 4: Esophagus, Biopsy 5: Colon, Biopsy CLINICAL HISTORY: 1). DUODENUM BIOPSY 2). ANTRUM BIOPSY, RULE OUT H.PYLORI 3). GASTRIC BODY BIOPSY, RULE OUT H.PYLORI 4). DISTAL ESOPHAGUS BIOPSY 5). COLON BIOPSY AT 25CM FINAL DIAGNOSIS: 1. Duodenum, Biopsies: Duodenal mucosa with no diagnostic abnormality. Negative for active inflammation, features of sprue, dysplasia and malignancy. 2. Stomach, Antrum, Biopsy: Antral mucosa with no diagnostic abnormality. Negative for Helicobacter organisms. Negative for intestinal metaplasia. Negative for dysplasia and malignancy. 3. Stomach, Body, Biopsy: Body-type mucosa with no diagnostic abnormality. Negative for Helicobacter organisms. Negative for intestinal metaplasia. Negative for dysplasia and malignancy. 4. Distal Esophagus, Biopsy: Squamocolumnar junctional mucosa with reflux-related changes. Negative for intestinal metaplasia. No fungal organisms identified by PAS stain. Negative for dysplasia and malignancy. 5. Colon, 25 cm, Biopsy: Colonic mucosa with atrophic crypts and fibrinopurulent exudate consistent with ischemia type changes. See comment. No evidence of dysplasia or malignancy. NOTE: Part 5: The colon biopsy at 25 cm shows ulcerated colonic mucosa with atrophic crypts and predominantly fibrinopurulent exudate, consistent with ischemia type change. The differential diagnosis inlcudes ischemia due to trauma/prolapse, ischemia due to infection (ie. Enterohemorrhagic E. Coli, C. Dificile, etc.), and true vascular ischemia. Electronically Signed Out Shila Goldsmith MD . Assessment & Plan 85-year-old woman with a history of colon cancer s/p colon resection, chemo x5 rounds, and radiation in 2001 who presented with abdominal left lower quadrant pain and rectal bleeding. Abdominal pain likely secondary to ischemic colitis and intra-abdominal mass in patient with rectal bleeding. - Patient presented with leukocytosis, elevated lactic acid, and bloody diarrhea. - CT abdomen findings with circumferential wall thickening of the splenic flexure and descending colon consistent with colitis, a heterogeneously enhancing mass adjacent to the lesser curvature of the stomach, and a 3.7x3.5 cm infrarenal abdominal aortic aneurysm. - MRA of the abdomen showed patent celiac access and superior mesenteric arteries as well as a inferior mesenteric artery that was also patent. - Abdominal ultrasound also showed a a perigastric mass which was heterogeneous and demonstrated internal vascularity. - EGD and colonoscopy significant for Mild nonerosive gastritis, widely open, patent Schatzki ring, and submucosal hemorrhage with linear ulceration of the colon most consistent with ischemic colitis at 25 cm status post biopsy. BIOPSY RESULTS: Duodenum- Negative for active inflammation, features of sprue, dysplasia and malignancy. Stomach, Antrum- Negative for Helicobacter organisms, intestinal metaplasia, dysplasia, and malignancy. Stomach, Body- Negative for Helicobacter organisms, intestinal metaplasia, dysplasia and malignancy. Distal Esophagus- Squamocolumnar junctional mucosa with reflux-related changes. Negative for intestinal metaplasia, No fungal organisms identified by PAS stain , Negative for dysplasia and malignancy. Colon, 25 cm-Colonic mucosa with atrophic crypts and fibrinopurulent exudate consistent with ischemia type changes, No evidence of dysplasia or malignancy. NOTE: Part 5: The colon biopsy at 25 cm shows ulcerated colonic mucosa with atrophic crypts and predominantly fibrinopurulent exudate, consistent with ischemia type change. The differential diagnosis inlcudes ischemia due to trauma/prolapse, ischemia due to infection (ie. Enterohemorrhagic E. Coli, C. Dificile, etc.), and true vascular ischemia. RECOMMENDATIONS: - General Surgery consult, recommendations greatly appreciated - Continue to monitor clinically for overt signs of bleeding as well as serial H /H. - If mass is amenable to EUS FNA biopsy this can be done as an outpatient once ischemic colitis has resolved. - Stable for discharge from GI standpoint - Followup in GI clinic in 2-4 weeks Additional problems managed by primary hospitalist: - Hyperlipidemia - Hypertension - Abdominal artery aneurysm VTE Prophylaxis: SCDs VTE Mechanical Devices: Intermittant Pneumatic CD Resuscitation Status: DNR/DNI:Do Not Resuscitate/Intubate Augustina Herring DO Nov 07, 2016 09:01
[2016-11-07] MEDS ORDERED: NICO1PAT5 TOPICAL (12:23)
--- NOTE | 2016-11-07 12:25 | PCM.DC.MED ---
Discharge Summary Date of Service Nov 07, 2016 Dates of Hospitalization Date of Hospital Admission Nov 02, 2016 at 11:45 Date of Discharge: Nov 07, 2016 Providers: Admitting Physician: Gilmar Mauro MD Primary Care Physician: Other,Physician Attending Physician: Ilan Altamirano MD Diagnosis at Time of Discharge Diagnosis at Time of Discharge >Abdominal pain due to Ischemic colitis > Abdominal mass > Hypercholetrimia > HTN > Abdominal Artery aneurysm Procedures XRay, CTs & MRIs 11/02/16 - CT ABDOMEN AND PELVIS WITH CONTRAST IMPRESSION: 1. Circumferential wall thickening of the splenic flexure and descending colon would be consistent with colitis of uncertain etiology. Differential diagnoses would include infectious or pseudomembranous colitis, underlying inflammatory bowel disease, or ischemic colitis. 2. 9.6 x 7.3 x 7.0 cm heterogeneously enhancing mass adjacent to the lesser curvature of the stomach. Differential diagnoses would include GI stromal tumor versus unusual manifestation of colon carcinoma metastasis. 3. Bilateral renal cortical and parapelvic cysts, larger and more numerous on the right. 4. 3.7 x 3.5 cm infrarenal abdominal aortic aneurysm. Approved by: Kendrick Sauceda M.D. on 11/02/2016 at 10:33 11/02/16 - MRA ANGIOGRAM ABDOMEN IMPRESSION: 1. Celiac access and superior mesenteric artery are patent. A likely inferior mesenteric artery is identified and is patent. 2. There is a 3.8 cm distal abdominal aortic fusiform aneurysm. Recommend continued followup with CT or ultrasound. 3. Colonic wall thickening and mass in or adjacent to the stomach wall better seen on today's CT. Approved by: Semaj Birmingham M.D. on 11/02/2016 at 16:49 11/04/16 - US ABDOMEN, LIMITED IMPRESSION: Heterogeneous perigastric mass demonstrating internal vascularity Approved by: Lorne Pike M.D. on 11/04/2016 at 14:00 . Other Diagnostics 11/03/2016 - EGD and COLONOSCOPY w/BIOPSY PREOPERATIVE DIAGNOSIS: Abnormal CAT scan and rectal bleeding. POSTOPERATIVE DIAGNOSIS(ES): 1. Widely open, patent Schatzki ring, status post biopsy. 2. Mild nonerosive gastritis. 3. No mass was seen in the stomach. 4. A loss of architecture with bluish hemorrhagic nodules with submucosal hemorrhage with linear ulceration of the colon most consistent m,with ischemic colitis at 25 cm status post biopsy. Edis Lorenz MD 11/03/16 1526 SURGICAL PATHOLOGY Attending Physician:Edis Lorenz MD DATE COLLECTED:11/03/2016 SPECIMEN: 1: Duodenum, Biopsy 2: Stomach, Antrum, Biopsy 3: Gastric, Biopsy 4: Esophagus, Biopsy 5: Colon, Biopsy CLINICAL HISTORY: 1). DUODENUM BIOPSY 2). ANTRUM BIOPSY, RULE OUT H.PYLORI 3). GASTRIC BODY BIOPSY, RULE OUT H.PYLORI 4). DISTAL ESOPHAGUS BIOPSY 5). COLON BIOPSY AT 25CM FINAL DIAGNOSIS: 1. Duodenum, Biopsies: Duodenal mucosa with no diagnostic abnormality. Negative for active inflammation, features of sprue, dysplasia and malignancy. 2. Stomach, Antrum, Biopsy: Antral mucosa with no diagnostic abnormality. Negative for Helicobacter organisms. Negative for intestinal metaplasia. Negative for dysplasia and malignancy. 3. Stomach, Body, Biopsy: Body-type mucosa with no diagnostic abnormality. Negative for Helicobacter organisms. Negative for intestinal metaplasia. Negative for dysplasia and malignancy. 4. Distal Esophagus, Biopsy: Squamocolumnar junctional mucosa with reflux-related changes. Negative for intestinal metaplasia. No fungal organisms identified by PAS stain. Negative for dysplasia and malignancy. 5. Colon, 25 cm, Biopsy: Colonic mucosa with atrophic crypts and fibrinopurulent exudate consistent with ischemia type changes. See comment. No evidence of dysplasia or malignancy. NOTE: Part 5: The colon biopsy at 25 cm shows ulcerated colonic mucosa with atrophic crypts and predominantly fibrinopurulent exudate, consistent with ischemia type change. The differential diagnosis inlcudes ischemia due to trauma/prolapse, ischemia due to infection (ie. Enterohemorrhagic E. Coli, C. Dificile, etc.), and true vascular ischemia. Electronically Signed Out Shila Goldsmith MD . Brief History Per HPI by Dr. Snyder on 11/07/16 85 y/o female w/ a hx of HTN, and colon cancer (s/p resection, chemo and radiation in 2001) who is coming in with severe lower abdominal pain. The pain began after dinner w/ severe gas last night with abdominal cramping following an hour after that.Lat night, she started noticing rectal bleeding w/o bowel movements as well. The pt has had several episodes of bloody diarrhea since then as well as L sided abdominal pain, nausea, and polydipsia.Patient said she did not have any issues like this before. She is a current smoker. Hospital Course 85 y/o female w/ a hx of HTN, and colon cancer (s/p resection, chemo and radiation in 2001) who is coming in with severe lower abdominal pain found to have ischemic colitis and Perigastric exta-mucosal mass: >Abdominal pain due to Ischemic colitis, poa, active. - CT scan as noted. concerns for ischemic colitis. - MRA - patent celiac and mesenteric arteries - continued on empiric abx : levo + flagyl, changed to po on 11/06. Will stop antibiotics upon discharge. - Colonoscopy and endoscopy results noted, ischemic colitis. Biopsy consistent with Ischemic Colitis, negative for dysplasia and malignancy. - GI- Dr. Lorenz following. Outpatient EUS FNA biopsy bx of abdominal mass once ischemic colitis has resolved instead of CT guided biopsy. - Surgery following- consider possible perigastric extra-mucolsal mass removal as outpatient 2 weeks after EUS/ biopsy is done. Follow up with Dr. Alejandre in outpatient clinic > Abdominal mass - 9.6 x 7.3 x 7.0 cm heterogeneously enhancing mass adjacent to the lesser curvature of the stomach - CEA ordered -discussed the case with Dr. Henson for Ct guided biopsy, she mentioned the mass is fluid filled (likely hematoma), could be aspirated superficially however will be hard to get a tissue sample - US abd done as recommended, results as above. Discussed with surgery,Dr. Shepherd, recommended to let ischemic bowel resolve before pursuing biopsy - See above plan. > Hypercholetrimia - continue home meds > HTN - continue carvedilol, - amlodipine stopped > Abdominal Artery aneurysm - <5.5 cms in size, will need outpatient follow up Pain Evaluation: Adequate Pain Control VTE Prophylaxis: SCDs VTE Mechanical Devices: Intermittant Pneumatic CD Resuscitation Status: DNR/DNI:Do Not Resuscitate/Intubate Dispo- cleared for discharge by Surgery and GI. Discharge to home with daughter. Have completed course of antibiotics. Have added Nicotine Patch. Followup in GI clinic in 2-4 weeks. Hold Aspirin for now until see your primary doctor. Can resume if bleeding and labs are stable. Follow up with Dr. Alejandre in outpatient clinic 2-3 weeks after Gastroenterology evaluation. Follow up with your primary doctor, Dr. Darrion Cuellar, in 1 week to check CBC to evaluate for further bleeding. Will also need to evaluate and monitor Abdominal Artery aneurysm Exam Vital Signs (Last) Date Time Temp Pulse Resp B/P Pulse Ox O2 Delivery O2 Flow Rate FiO2 11/07/16 08:39 Supplement Oxygen 11/07/16 04:35 36.9 69 18 172/89 95 11/04/16 13:35 1.00 Test 11/02/16 09:00 11/03/16 05:20 11/03/16 08:20 11/04/16 03:00 Lipase 21U/L (13-60) Hold [place] Top Tube Received (Received) Hematology Comments Total Bilirubin 0.6mg/dL (0.0-1.2) Aspartate Amino Transf (AST/SGOT) 20U/L (0-50) Alanine Aminotransferase (ALT/SGPT) 15U/L (0-32) Alkaline Phosphatase 95U/L (25-165) Total Protein 5.5g/dL (6.4-8.4) Albumin 3.1g/dL (3.4-5.0) Carcinoembryonic Antigen 3.8ng/mL (0.0-4.7) Lactic Acid Level 0.7mmol/L (0.4-2.0) Urine Color Yellow (YELLOW) Urine Appearance Clear (CLEAR,HAZY) Urine pH 7.0 (5.0-8.0) Urine Specific [place] 1.010 (1.003-1.035) Urine Protein Negativemg/dL (NEG,TRACE) Urine Glucose (UA) Negativemg/dL (NEGATIVE) Urine Ketones Negativemg/dL (NEGATIVE) Urine Occult Blood Small (NEGATIVE) Urine Nitrite Negative (NEGATIVE) Urine Bilirubin Negative (NEGATIVE) Urine Urobilinogen Normalmg/dL (NORMAL) Urine Leukocyte Esterase Trace (NEGATIVE) Urine RBC 3-10/hpf (0-2) Urine WBC 0-5/hpf (0-5) Urine Epithelial Cells Few/hpf (NONE-MOD) Urine Crystals None seen (NONE SEEN) Urine Bacteria Few/hpf (NONE-FEW) Urine Hyaline Casts None/lpf (NONE) Urine Granular Casts None seen (NONE SEEN) Urine Waxy Casts None seen (NONE SEEN) Urine Red Blood Cell Casts None seen (NONE SEEN) Urine White Blood Cell Casts None seen (NONE SEEN) Urine Mucus None seen (None Seen) Urine Trichomonas None seen (NONE SEEN) Urine Yeast None (NONE SEEN) Urinalysis Comment None Urine Culture Reflexed Indicated Test 11/05/16 05:00 11/07/16 08:25 Sodium Level 141mEq/L (134-144) Potassium Level 3.4mEq/L (3.5-5.2) Chloride Level 106mEq/L (97-108) Carbon Dioxide Level 22mmol/L (18-29) Blood Urea Nitrogen 3mg/dL (8-27) Creatinine 0.48mg/dL (0.57-1.00) Estimat Glomerular Filtration Rate 176mL/min (>59) Glucose Level 123mg/dL (60-99) Calcium Level 8.4mg/dL (8.5-10.1) Phosphorus Level 2.4mg/dL (2.5-4.9) Magnesium Level 1.6mg/dL (1.6-2.6) White Blood Count 9.7th/mm3 (3.8-10.1) Red Blood Count 4.50mil/mm3 (3.90-5.20) Hemoglobin 13.7g/dL (12.0-15.6) Hematocrit 40.7% (35.0-46.0) Mean Corpuscular Volume 90.4fL (81-100) Mean Corpuscular Hemoglobin 30.4pg (27.0-35.0) Mean Corpuscular Hemoglobin Concent 33.7% (32.0-37.0) Red Cell Distribution Width 15.2% (12.3-15.4) Platelet Count 301bil/L (150-400) Neutrophils (%) (Auto) 63.2% (40-74) Lymphocytes (%) (Auto) 19.4% (14-46) Monocytes (%) (Auto) 11.3% (4-12) Eosinophils (%) (Auto) 4.8% (0-5) Basophils (%) (Auto) 0.6% (0-3) Discharge Medications Discharge Medications ([areds 2 eye vit]) 1 TABLET PO BID (Reported) Amlodipine (Amlodipine) 10 Mg Tablet 10 MG PO DAILY (Reported) Aspirin (Aspirin) 81 Mg Tablet 81 MG PO DAILY (Reported) Atorvastatin Calcium (Atorvastatin Calcium) 40 Mg Tablet 40 MG PO DAILY ( Reported) Carvedilol (Carvedilol) 6.25 Mg Tablet 6.25 MG PO BID (Reported) Cholecalciferol (Vitamin D3) (Vitamin D) 1,000 Unit Tablet 2,000 UNIT PO DAILY ( Reported) As needed Sennosides (Senna Laxative) 25 Mg Tablet 25 MG PO DAILY PRN PRN For Constipation (Reported) Miscellaneous Medications Fexofenadine HCl (Aller-Ease) 30 Mg/5 Ml Oral.susp 30 MG PO (Reported) Multivits-Min/FA/Lycopene/Lut (Centrum Silver Tablet) 1 Each Tablet 1 EACH PO ( Reported) [place]-3 Fatty Acids (Fish Oil) 500 Mg Capsule. 500 MG PO (Reported) Additional med instructions Have completed course of antibiotics. Have added Nicotine Patch. Hold Aspirin for now until see your primary doctor. Can resume if bleeding and labs are stable. Followup Plan Disposition: Discharge to home with daughter. Follow-up plan Followup in GI clinic in 2-4 weeks. Follow up with Dr. Alejandre in outpatient clinic 2-3 weeks after Gastroenterology evaluation. Follow up with your primary doctor, Dr. Darrion Cuellar, in 1 week to check CBC to evaluate for further bleeding. Will also need to evaluate and monitor Abdominal Artery aneurysm. Discharge Diet: Heart Healthy, Other (As tolerated. ) Discharge Activity: No restrictions Provider: Edis Lorenz MD Follow-up in: 2 weeks Time spent Greater than 30 minutes was spent in preparation of discharge with greater than 50% of that time dedicated to patient counseling and coordination of care. Ilan Altamirano MD Nov 07, 2016 12:25
--- NOTE | 2016-11-07 12:29 | PCM.DIMED ---
Discharge Instructions Date of Service Nov 07, 2016 Dates of Hospitalization Nov 02, 2016 at 11:45 Discharge Diagnosis Discharge Diagnosis >Abdominal pain due to Ischemic colitis > Abdominal mass > Hypercholetrimia > HTN > Abdominal Artery aneurysm Medication Instructions Additional med instructions Have completed course of antibiotics. Have added Nicotine Patch. Hold Aspirin for now until see your primary doctor. Can resume if bleeding and labs are stable. Diet Discharge Diet: Heart Healthy, Other (As tolerated. ) Activity Discharge Activity: No restrictions Patient Instructions Follow-up plan Followup in GI clinic in 2-4 weeks. Follow up with Dr. Alejandre in outpatient clinic 2-3 weeks after Gastroenterology evaluation. Follow up with your primary doctor, Dr. Darrion Cuellar, in 1 week to check CBC to evaluate for further bleeding. Will also need to evaluate and monitor Abdominal Artery aneurysm. Provider: Edis Lorenz MD Follow-up in: 2 weeks Ilan Altamirano MD Nov 07, 2016 12:29
--- NOTE | 2016-11-07 14:30 | NUR ---
Social Work-discharge: Data:EMR reviewed. Pt is on day 5 of hospitalization for abdominal pain per H&P. Pt is medically stable for discharge today. PT worked with pt and they are recommending home with HH services. MD order received for -PT services. SW spoke with pt and daughter regarding HH service, HH choice list provided. Pt and daughter have no agency preference, SW referred to rotating calendar and made referral to [facility] for Pt, access given. [facility] has availability for pt in the next 24-48 hours. F2F has been provided to [facility]. PCP appointment scheduled for pt on Saturday 11/11 with the [facility] at [facility]5, pt and daughter updated. All updated and agreeable to plan. Assessment:Pt who would benefit from services. Plan:Pt to discharge home today via POV. F2F and orders provided to [facility] for Pt services. All updated and agreeable to plan. HERMAN Bermudez
[2016-11-07 14:37] VITALS: BP 127/69; PULSE 65; RESP 20; O2SAT 93
--- NOTE | 2016-11-07 14:58 | NUR ---
DISCHARGE Pt dc'd home at 1455, off unit in w/c accompanied by dtr and [employer]. Vital signs stable, A&Ox4, denies any pain and in no apparent distress. IV out yesterday, all belongings returned. All instructions for diet, activity, medications, prescriptions and follow up reviewed with pt who reports understanding.
== END 2016-11-07 15:03 | disposition home or self-care (01) | DRG 395 ==
LOC: SED 08:13 → MPC 11:45
PROVIDERS: ADMIT Internal Medicine; ATTEND Internal Medicine
PROC: 0DB68ZX Excision of Stomach, Via Natural or Artificial Opening Endoscopic, Diagnostic (ICD-10-PCS; 2016-11-03)
PROC: 0DB38ZX Excision of Lower Esophagus, Via Natural or Artificial Opening Endoscopic, Diagnostic (ICD-10-PCS; 2016-11-03)
PROC: 0DBE8ZX Excision of Large Intestine, Via Natural or Artificial Opening Endoscopic, Diagnostic (ICD-10-PCS; principal; 2016-11-03 10:30)
PROC: 0DB98ZX Excision of Duodenum, Via Natural or Artificial Opening Endoscopic, Diagnostic (ICD-10-PCS; 2016-11-03 10:30)
DX: K55.031 Focal (segmental) acute (reversible) ischemia of large intestine (principal); K22.2 Esophageal obstruction; I10 Essential (primary) hypertension; Z85.038 Personal history of other malignant neoplasm of large intestine; Z90.49 Acquired absence of other specified parts of digestive tract; F17.200 Nicotine dependence, unspecified, uncomplicated; R19.06 Epigastric swelling, mass or lump; I71.4 Abdominal aortic aneurysm, without rupture; E78.5 Hyperlipidemia, unspecified; Z66 Do not resuscitate; Z96.643 Presence of artificial hip joint, bilateral